=== PATIENT | female | born 1980 | race Caucasian/White ===

== ENCOUNTER 2024-11-01 14:09 | Emergency (ER) | payer MEDICAID, SELFPAY ==
[2024-11-01 14:10] VITALS: BMI 27.3
[2024-11-01 14:25] VITALS: BP 110/71; PULSE 78; RESP 20; TEMP 37.1; O2SAT 96
--- NOTE | 2024-11-01 14:38 | XR_ITS ---
Examination: CT abdomen and pelvis without contrast. Coronal 3-D reconstructions. Sagittal 2-D reconstructions. Date and time of exam:November 01, 2024 1502 hours INDICATIONS: Onset left-sided flank pain today COMPARISON: January 21, 2018 CTDI: vol (mGy): 9.84 DLP: (mGycm): 543 Technique: Axial images of the abdomen have been obtained, 3 mm slice thickness Intravenous contrast material has not been administered. Low dose protocols were performed. One or more of the following dose reduction techniques were used; automated exposure control, adjustment of the mA and/or KV according to patient size, use of iterative reconstruction technique. Findings: No focal liver or splenic lesion Contracted gallbladder No pancreatic or adrenal mass No renal or ureteral calculi No perinephric stranding No hydronephrosis Aorta normal size 15 mm fat-containing umbilical hernia No pericecal inflammatory change No bowel obstruction Anteverted uterus Contracted urinary bladder no bladder mass or bladder calculi Intact osseous structures IMPRESSION: No renal or ureteral calculi, no hydronephrosis No bladder mass or bladder calculi
--- NOTE | 2024-11-01 14:39 | PD.EDRME ---
Rapid Medical Screening Exam [facility] Arrival date/time: 11/01/24 14:09 43-year-old female with no known medical history presents to the emergency room with a chief complaint of fever, left-sided flank pain, left lower abdominal pain x 2 days. I have greeted and performed a focused initial assessment of this patient. A comprehensive ED assessment and evaluation of the patient, analysis of all test results, and completion of the medical decision making process will be conducted by additional ED providers. Chief Complaint: Abdominal Pain Vital signs: Vital Signs Temperature 98.8 F 11/01/24 14:25 Pulse Rate 78 11/01/24 14:25 Respiratory Rate 20 11/01/24 14:25 Blood Pressure 110/71 11/01/24 14:25 Pulse Oximetry (%) 96 11/01/24 14:25 Oxygen Delivery Method Room Air 11/01/24 14:25 Vital signs reviewed by provider: Yes
[2024-11-01 14:58] LABS: Collection Type, Urine Clean Catch
[2024-11-01] MEDS: HYDROcodone/APAP 5/325 TABLET 1 TAB PO (14:58)
[2024-11-01 15:07] LABS: Bilirubin,Urine Negative (Negative); Blood,Urine 1+ (Negative); Clarity,Urine Clear (Clear/Hazy); Color,Urine Colorless (Lt Yel-Yel); Glucose, Urine Negative (Negative); Ketones,Urine Negative (Negative); Leukocyte Esterase,Urine Negative (Negative); Nitrite,Urine Negative (Negative); Protein,Urine Negative (Neg - Trace); RBC,Urine 1 /hpf (0-3); Specific Gravity,Urine 1.009 (1.001-1.035); Squamous Epithelial Cell,Urine 1 /hpf (0-5); Urobilinogen,Urine Negative mg/dL (0.0-1.0); WBC,Urine 1 /hpf (0-5)
[2024-11-01 15:16] LABS: Basophils % (Auto) 0 % (0-2.5); Eosinophils % (Auto) 0 % (0-10); Hematocrit 38.2 % (36.0-46.0); Immature Granulocytes % (Auto) 0 % (0-0); Immature Granulocytes Auto 0.02 Thou/mm3 (0.00-0.00); Lymphocytes # (Auto) 2.1 Thou/mm3 (1.0-4.8); Lymphocytes % (Auto) 23 % (10-50); Mean Corpuscular Hemoglobin 30.8 pg (25.0-35.0); Mean Corpuscular Volume 91 fL (80-100); Monocytes % (Auto) 11 % (0-12); Neutrophils % (Auto) 66 % (37-80); Nucleated Red Blood Cell % 0 /100 WBC (0); Platelet Count 295 Thou/mm3 (140-440); RDW Standard Deviation 40.7 fL (36.4-46.3); Red Blood Count 4.22 Miln/mm3 (4.00-5.20); White Blood Count 9.2 Thou/mm3 (3.6-11.0)
[2024-11-01 15:54] LABS: Alanine Aminotransferase 25 U/L (10-49); Albumin, Serum 4.5 gm/dL (3.5-5.0); Albumin/Globulin Ratio 1.5 (1.2-2.2); Alkaline Phosphatase 96 U/L (46-116); Anion Gap 6 (7-16); Aspartate Amino Transferase 21 U/L (0-34); BUN/Creatinine Ratio 13 Ratio (12-20); Bilirubin,Total 0.6 mg/dL (0.3-1.2); Blood Urea Nitrogen 13 mg/dL (9-23); Calcium 9.5 mg/dL (8.3-10.6); Calcium (Corrected) 9.5 mg/dL (8.5-10.1); Carbon Dioxide 26.3 mMol/L (20.0-31.0); Chloride 104 mMol/L (98-107); Estimated Creatinine Clearance 79.5 mL/min (>60); Glucose 96 mg/dL (74-106); Lipase 36 U/L (12-53); Osmolality,Calculated 272 (275-295); Potassium 3.9 mMol/L (3.4-5.1); Sodium 136 mMol/L (136-145); Total Protein 7.5 gm/dL (5.7-8.2); eGFR > 60 See Note
[2024-11-01 16:48] VITALS: BP 101/65; PULSE 68; RESP 20; TEMP 36.7; O2SAT 98
--- NOTE | 2024-11-01 16:56 | EDNOTE_ITS ---
ED General RME/HPI General Chief complaint: Abdominal Pain Stated complaint: SEVERE L) FLANK/ABD PAIN, SENT BY [facility] FOR US Time Seen by Provider: 11/01/24 16:52 Arrival date/time: 11/01/24 14:09 CC: Left flank pain HPI abrupt onset at 2 AM this morning and has slowly decreased and is now currently minimal at a 1 on a 10 scale no nausea or vomiting. Patient has a history of kidney stones and concerned is the same. The pain initially wrapped around to the groin area. Patient currently denies fever chills chest pain shortness of breath or difficulty breathing. RME / HPI RME / HPI narrative: 11/01/24 14:09 43-year-old female with no known medical history presents to the emergency room with a chief complaint of fever, left-sided flank pain, left lower abdominal pain x 2 days. I have greeted and performed a focused initial assessment of this patient. A comprehensive ED assessment and evaluation of the patient, analysis of all test results, and completion of the medical decision making process will be conducted by additional ED providers. Related Data Previous Rx's ?Medication ?Instructions ?Recorded ibuprofen 800 mg tablet 800 mg PO TID PRN pain #30 t abs 11/25/19 Allergies Allergy/AdvReac Type Severity Reaction Status Date / Time acetaminophen (From NyQuil) Allergy Severe Hives Verified 11/01/24 14:14 dextromethorphan (From Allergy Severe Hives Verified 11/01/24 14:14 NyQuil) doxylamine (From NyQuil) Allergy Severe Hives Verified 11/01/24 14:14 pseudoephedrine (From Allergy Severe Hives Verified 11/01/24 14:14 DayQuil Sinus Pressure/Pain) ibuprofen Allergy Verified 11/01/24 14:14 latex AdvReac Intermediate Rash Verified 11/01/24 14:14 BEE STING Allergy Severe Anaphylaxis Uncoded 11/01/24 14:14 Review of Systems Review of Systems Narrative Review of Systems: GEN: No fever, no chills, no weight loss EYES: No discharge, no visual changes, no pain HEENT: No ear pain, no congestion, no sore throat PULM: No shortness of breath, no cough, no congestion CV: No chest pain, no dyspnea on exertion, no palpitations GI: No nausea, no vomiting, no diarrhea, no pain, no constipation : No frequency, no urgency, no dysuria MUSC/SKEL: No joint pain, no back pain SKIN: No rash PSYCH: No hallucinations, no depression HEME/LYMPH: No easy bleeding or bruising tendencies NEURO: No weakness, no headache Past Medical History Past Medical History NEUROLOGIC: Negative Neurological Disorders (No recent hospitalizations) CARDIAC: Negative Congestive Heart Failure RESPIRATORY: Negative Chronic Obstructive Pulmonary Disease (COPD) GENITOURINARY: Positive Kidney Stones; Negative Renal Disease ENDOCRINE: Negative Diabetes Mellitus Type 1 or Diabetes Mellitus Type 2 Social History SMOKING STATUS: Former smoker SUBSTANCE USE: does not use ED Exam Narrative Physical exam: [General: Completed at 1700. Not in any acute distress Head normocephalic HEENT: Within acceptable limits Neck is supple nontender Chest equal chest rise nontender to palpation Respiratory: Clear to auscultation no wheezes crackles or rubs CV: Rate rhythm is regular no murmurs rubs or clicks Abdomen is distended secondary to body habitus soft nontender no masses positive bowel sounds all 4 quadrants Back: No CVA tenderness no spinous process tenderness from cervical spine thoracic and lumbar spine Skin: Intact no petechiae rash induration ulceration or crepitus Extremities: Moving all extremity against resistance cap refill less than 2 seconds neurosensory intact Neuro: Awake alert oriented x3 Glascow coma 15 no focal deficits] Course Quality Measures none Orders Category Date Time Status CT abdomen pelvis wo con Stat Exams 11/01/24 14:38 Completed CBC Stat Lab 11/01/24 14:55 Completed CMP [Comprehensive Metabolic Panel] Stat Lab 11/01/24 14:55 Completed Lipase Stat Lab 11/01/24 14:55 Completed UA [Urinalysis] Stat Lab 11/01/24 14:52 Completed Urine Culture Stat Lab 11/01/24 14:52 Received HYDROcodone*/APAP 5/325 [[place] 5/325] Med 11/01/24 14:38 Discontinued 1 tab PO X1 ONE Vital Signs Vital signs: Vital Signs Temperature 98.8 F 11/01/24 14:25 Pulse Rate 78 11/01/24 14:25 Respiratory Rate 20 11/01/24 14:25 Blood Pressure 110/71 11/01/24 14:25 Pulse Oximetry (%) 96 11/01/24 14:25 Oxygen Delivery Method Room Air 11/01/24 14:25 [facility] Patient data External records reviewed:: [facility] previous records Clinical information provided by:: patient Social determinants that could affect healthcare access:: none Patient has the following chronic illnesses:: None How is presenting disease/condition affected by chronic disease/condition?: u neffected by Evaluation data The following diagnostics were reviewed and interpreted by me:: lab results and radiology exam(s) Lab and/or radiology exams considered but not ordered:: CBC shows no acute leukocytosis anemia thrombocytopenia CMP shows no acute electrolyte imbalances renal impairment transaminitis or T. bili elevation Urine is colorless 1+ blood no bacteremia. CT of the abdomen pelvis interpreted by me and read by radiology shows no acute finding including hydroureter urolithiasis. Interpretation Summary: Given the patient's presentation and clinical findings suspect the patient is passed kidney stone. We will give the patient medication for nausea and she is to continue to take Tylenol as she is allergic to ibuprofen. Medications Medications considered but not ordered:: None Medication administrations:: Medication Administration History Discontinued Medications Hydrocodone Bitart/Acetaminophen (Hydrocodone/Apap 5/325 Tablet) 1 tab PO X1 ONE Stop: 11/01/24 14:39 Last Admin: 11/01/24 14:58 Dose: 1 tab Documented By: None Consultations Consultation(s) initiated? (list below): No Diagnosis Differential Diagnosis ED Complaint MDM: Urolithiasis hydroureter hydronephrosis Most likely diagnosis given after review of the tests above:: Flank pain Admission Indicated Admission indicated?: not indicated Explain why admission is indicated or not indicated:: Stable for discharge Admission Request Was there a request for admission?: No Disposition Plan Disposition Plan: Discharge Discharge Attestation Discharge Attestation: The patient and all family members were given an opportunity to ask questions and understood the discharge instructions. Discharge instructions specifically effects, indications for sooner follow up or return to the emergency department, and the expected course of current diagnosis. Patient condition: Stable Medical Decision Making Differential Diagnosis Differential Diagnosis: Urolithiasis hydroureter hydronephrosis Lab Data 11/01/24 14:55 11/01/24 14:55 Labs: Lab Results 11/01/24 11/01/24 Range/Units 14:52 14:55 WBC 9.2 (3.6-11.0) Thou/mm3 RBC 4.22 (4.00-5.20) Miln/mm3 Hgb 13.0 (12.0-16.0) g/dL Hct 38.2 (36.0-46.0) % MCV 91 (80-100) fL MCH 30.8 (25.0-35.0) pg MCHC 34.0 (31.0-37.0) g/dl RDW Std Deviation 40.7 (36.4-46.3) fL Plt Count 295 (140-440) Thou/mm3 Neut % (Auto) 66 (37-80) % Lymph % (Auto) 23 (10-50) % [place] % (Auto) 11 (0-12) % Eos % (Auto) 0 (0-10) % Baso % (Auto) 0 (0-2.5) % Neut # (Auto) 6.0 (1.8-7.7) Thou/mm3 Lymph # (Auto) 2.1 (1.0-4.8) Thou/mm3 [place] # (Auto) 1.0 H (0.0-0.8) Thou/mm3 Eos # (Auto) 0.0 (0.0-0.5) Thou/mm3 Baso # (Auto) 0.0 (0.0-0.2) Thou/mm3 Immature Gran # (Auto) 0.02 H (0.00-0.00) Thou/mm3 Absolute Nucleated RBC 0.00 (0.00-0.00) Thou/mm3 Immature Gran % 0 (0-0) % Nucleated RBC % 0 (0) /100 WBC Sodium 136 (136-145) mMol/L Potassium 3.9 (3.4-5.1) mMol/L Chloride 104 (98-107) mMol/L Carbon Dioxide 26.3 (20.0-31.0) mMol/L Anion Gap 6 L (7-16) BUN 13 (9-23) mg/dL Creatinine 1.0 (0.6-1.3) mg/dL Estim Creat Clear Calc 79.5 (>60) mL/min eGFR > 60 (60 - ) See Note BUN/Creatinine Ratio 13 (12-20) Ratio Glucose 96 (74-106) mg/dL Calculated Osmolality 272 L (275-295) Calcium 9.5 (8.3-10.6) mg/dL Corrected Calcium 9.5 (8.5-10.1) mg/dL Total Bilirubin 0.6 (0.3-1.2) mg/dL AST 21 (0-34) U/L ALT 25 (10-49) U/L Alkaline Phosphatase 96 (46-116) U/L Total Protein 7.5 (5.7-8.2) gm/dL Albumin 4.5 (3.5-5.0) gm/dL Globulin 3.0 (2.3-3.5) gm/dL Albumin/Globulin Ratio 1.5 (1.2-2.2) Lipase 36 (12-53) U/L Ur Collection Type Clean Catch Urine Color Colorless A (Lt Yel-Yel) Urine Clarity Clear (Clear/Hazy) Urine pH 6.0 (5.0-7.0) Ur Specific [place] 1.009 (1.001-1.035) Urine Protein Negative (Neg - Trace) Urine Glucose (UA) Negative (Negative) Urine Ketones Negative (Negative) Urine Blood 1+ A (Negative) Urine Nitrite Negative (Negative) Urine Bilirubin Negative (Negative) Urine Urobilinogen (Auto) Negative (0.0-1.0) mg/dL Ur Leukocyte Esterase Negative (Negative) Urine RBC 1 (0-3) /hpf Urine WBC 1 (0-5) /hpf Ur Squamous Epith Cells 1 (0-5) /hpf Urine Bacteria None (None) Discharge Plan Plan Patient Disposition: HOME (Self Care) Patient condition on transfer: Stable Prescriptions/Referrals Prescriptions/Med Rec: No Action ibuprofen 800 mg tablet 800 mg PO TID PRN (Reason: pain) Qty: 30 0RF Referrals: Lalo Quintanilla MD [Physician] - In 1 week No Primary/Family,Physician [Primary Care Provider] - In 1 week Problem List Clinical Impression: Flank pain Patient/Caregiver Discharge Instructions Education Materials: Abdominal Pain Additional Instructions: Given your clinical presentation and complaints, I suspect you have passed a kidney stone please follow-up with your primary care provider if there is worsening of symptoms return the emergency room medially for further evaluation. Print Language: [place] Stand Alone Forms: Melita Award Info., Work/School Release, Patient Portal Info Letter PA/TANNER Supervising Physician PA/TANNER Supervising Physician: Trena Marion ENP
== END 2024-11-01 17:06 | disposition home or self-care (01) ==
PROVIDERS: Nurse Practitioner Family; Emergency Provider Emergency Medicine
DX: R10.32 Left lower quadrant pain (principal); Z87.442 Personal history of urinary calculi
CPT/HCPCS: 36415; 74176; 80053; 81001; 83690; 85025; 87086; 99284; A9270

== ENCOUNTER 2024-11-27 16:17 | Emergency (ER) | payer MEDICAID, SELFPAY ==
[2024-11-27 16:37] VITALS: BP 124/81; PULSE 61; RESP 18; TEMP 36.9; O2SAT 100
--- NOTE | 2024-11-27 16:50 | PD.EDFALL ---
ED Fall Injury RME/HPI General Chief Complaint: Fall Stated Complaint: FELL, HIT R) SIDE OF HEAD, NO BLOOD THINNERS Time Seen by Provider: 11/27/24 16:43 Source: patient Arrival date/time: 11/27/24 16:17 Limitations: no limitations RME / HPI RME / HPI Narrative: 43-year-old female presents to the ED with a chief plaint right Petar Dempsey pain as well as a headache status post falling while rollerskating yesterday. Patient tells me she had a episode of LOC times a few seconds. MD complaint: fall Onset (ago): day(s) (last night.) Fall from: standing Fall witnessed: yes, by family Loss of consciousness: yes (X a few seconds) Length of LOC: second(s) Prolonged down time: no Symptoms prior to fall: none Context: tripped/slipped (Roller skating) Location of injury: head and face Severity: moderate Severity scale (1-10): 4 Quality: aching Associated symptoms (after fall): headache and other (Facial pain) Related Data Previous Rx's ?Medication ?Instructions ?Recorded ibuprofen 800 mg tablet 800 mg PO TID PRN pain #30 tabs 11/25/19 Allergies Allergy/AdvReac Type Severity Reaction Status Date / Time acetaminophen (From NyQuil) Allergy Severe Hives Verified 11/27/24 16:20 dextromethorphan (From Allergy Severe Hives Verified 11/27/24 16:20 NyQuil) doxylamine (From NyQuil) Allergy Severe Hives Verified 11/27/24 16:20 pseudoephedrine (From Allergy Severe Hives Verified 11/27/24 16:20 DayQuil Sinus Pressure/Pain) ibuprofen Allergy Verified 11/27/24 16:20 latex AdvReac Intermediate Rash Verified 11/27/24 16:20 BEE STING Allergy Severe Anaphylaxis Uncoded 11/27/24 16:20 Review of Systems Review of Systems Systems Reviewed: All systems reviewed, normal except as documented Past Medical History Past Medical History NEUROLOGIC: Negative Neurological Disorders (No recent hospitalizations) CARDIAC: Negative Congestive Heart Failure RESPIRATORY: Negative Chronic Obstructive Pulmonary Disease (COPD) GENITOURINARY: Positive Kidney Stones; Negative Renal Disease ENDOCRINE: Negative Diabetes Mellitus Type 1 or Diabetes Mellitus Type 2 Social History SMOKING STATUS: Former smoker SUBSTANCE USE: does not use ED Exam General Limitations: Present no limitations General appearance: Present alert and in no apparent distress Head Head exam: Present atraumatic, normocephalic and normal inspection Eye Eye exam: Present normal appearance, PERRL and EOMI ENT ENT exam: Present other (Tenderness to palpation is the right mandible) Neck Neck exam: Present normal inspection and full ROM Chest Chest inspection: Present normal inspection External exam: Present normal external exam Back Exam Back exam: Present normal inspection and full ROM Neurological Exam Neurological exam: Present alert and oriented X3 Psychiatric Psychiatric exam: Present normal affect and normal mood Skin Skin exam: Present warm and dry Course Quality Measures none Orders Category Date Time Status CT head/brain wo con Stat Exams 11/27/24 16:56 Completed XR mandible <4V Stat Exams 11/27/24 16:56 Completed Morphine Inj Med 11/27/24 17:56 Discontinued 5 mg IM X1 ONE Vital Signs Vital signs: Vital Signs Temperature 98.5 F 11/27/24 16:37 Pulse Rate 61 11/27/24 16:37 Respiratory Rate 18 11/27/24 16:37 Blood Pressure 124/81 11/27/24 16:37 Pulse Oximetry (%) 100 11/27/24 16:37 Oxygen Delivery Method Room Air 11/27/24 16:37 Also May but 100% Fall Patient data External records reviewed:: None Clinical information provided by:: patient Social determinants that could affect healthcare access:: none (NA) Patient has the following chronic illnesses:: NA How is presenting disease/condition affected by chronic disease/condition?: caused by (FALL) Evaluation data The following diagnostics were reviewed and interpreted by me:: radiology exam(s) Lab and/or radiology exams considered but not ordered:: NEGATIVE CT HEAD, NEGATIVE X-RAY MANDIBLE Interpretation Summary: NA Medications / Prescriptions Medications or Prescriptions considered but not ordered:: NA Medication administrations:: Medication Administration History Discontinued Medications Morphine Sulfate (Morphine Sulf Inj 10 Mg/Ml Vial) 5 mg IM X1 ONE Stop: 11/27/24 17:57 Last Admin: 11/27/24 18:52 Dose: 5 mg Documented By: KF Consultations Consultation(s) initiated? (list below): No Diagnosis Fall Differential Diagnosis: syncope, concussion with loss of consciousness, concussion without loss of consciousness and other (CONTUSION FACE, CONTUSION MANDIBLE) Most likely diagnosis given after review of the tests above:: CONTUSION HEAD, CONTUSION MANDIBLE Admission Indicated Admission indicated?: not indicated Admission Request Was there a request for admission?: No Disposition Plan Disposition Plan: Discharge Discharge Attestation Discharge Attestation: The patient and all family members were given an opportunity to ask questions and understood the discharge instructions. Discharge instructions specifically effects, indications for sooner follow up or return to the emergency department, and the expected course of current diagnosis. Patient condition: Stable Discharge Plan Plan Patient Disposition: HOME (Self Care) Disposition Comment: Discharge to home no apparent distress Patient condition on transfer: Stable Prescriptions/Referrals Prescriptions/Med Rec: No Action ibuprofen 800 mg tablet 800 mg PO TID PRN (Reason: pain) Qty: 30 0RF Referrals: No Primary/Family,Physician [Referring Provider] - In 1 week Problem List Clinical Impression: Contusion of head, Contusion of face Impression comment: Discharged in no apparent distress. Patient/Caregiver Discharge Instructions Print Language: Greek Stand Alone Forms: Melita Award Info., Patient Portal Info Letter PA/PLUMBER APPRENTICE Supervising Physician PA/PLUMBER APPRENTICE Supervising Physician: EMERALD
--- NOTE | 2024-11-27 16:56 | XR_ITS ---
Examination: Mandible series. TECHNIQUE: Lesley sagittal oblique series 4 views CLINICAL DATA: November 27, 2024 1822 hours INDICATIONS: Patient fell today with injury to the jaw, mandible pain FINDINGS: No acute mandible fracture Maxilla and orbital rims appear intact as well as cranial vault IMPRESSION: No fracture noted If symptoms persist, consider CT maxillofacial study without contrast followup
--- NOTE | 2024-11-27 16:56 | XR_ITS ---
Examination: CT brain head without contrast. 2-D sagittal coronal reconstructions Date and time of exam:November 27, 2024 1708 hours INDICATIONS: Patient fell today with injury to the right side of the head, right-sided head pain CTDI: vol (mGy):46.1 DLP: (mGycm):855 Technique: Multiple CT axial sections of the brain have been obtained, 5 mm slice thickness. Contrast has not been administered. 2-D sagittal, coronal reconstructions have been obtained Low dose protocols were performed. One or more of the following dose reduction techniques were used; automated exposure control, adjustment of the mA and/or KV according to patient size, use of iterative reconstruction technique. Findings: No significant ventricular enlargement. Intra-axial or extra-axial hemorrhage density is not seen. No mass effect or midline shift Basal cisterns are not remarkable. Fourth ventricle is midline. Cranial vault intact. Impression: Negative for acute hemorrhage, mass effect or midline shift
[2024-11-27] MEDS: MORPHINE SULF INJ 10 MG/ML VIAL 5 MG IM (18:52)
== END 2024-11-27 19:08 | disposition home or self-care (01) ==
PROVIDERS: Emergency Provider Emergency Medicine; PCP Family Medicine
DX: S00.83XA Contusion of other part of head, initial encounter (principal); W19.XXXA Unspecified fall, initial encounter; Y93.51 Activity, roller skating (inline) and skateboarding
CPT/HCPCS: 70100; 70450; 96372; 99284; J2270

== ENCOUNTER 2025-02-11 17:40 | Inpatient (IN) | payer MEDICAID, SELFPAY ==
[2025-02-11 18:15] VITALS: BP 106/70; PULSE 70; RESP 18; TEMP 36.9; O2SAT 98; BMI 26.0
--- NOTE | 2025-02-11 18:16 | PD.EDRME ---
Rapid Medical Screening Exam RME Arrival date/time: 02/11/25 17:40 Chief Complaint: Headache Time Seen by Provider: 02/11/25 18:15 Vital signs: Vital Signs Temperature 98.5 F 02/11/25 18:15 Pulse Rate 70 02/11/25 18:15 Respiratory Rate 18 02/11/25 18:15 Blood Pressure 106/70 02/11/25 18:15 Pulse Oximetry (%) 98 02/11/25 18:15 Oxygen Delivery Method Room Air 02/11/25 18:15 Vital signs reviewed by provider: Yes RME Narrative: 44-year-old female presents to the ED with a complaint of a left-sided headache that started yesterday. It waxes and wanes and at its worst is 10/10 and is currently an 8/10. She has had associated nausea and vomiting as well as left-sided facial tingling and left upper extremity tingling. She denies any recent illness with fever, chills, cough. She has had some left ear pain, left eye watering and left-sided throat pain. She denies any cough or difficulty breathing. She has a history of headaches but has not had a headache in a long time and states that this is the worst headache she has had. I have greeted and performed a focused initial assessment of this patient. A comprehensive ED assessment and evaluation of the patient, analysis of all test results, and completion of the medical decision making process will be conducted by additional ED providers.
--- NOTE | 2025-02-11 18:27 | XR_ITS ---
Examination: CT brain head without contrast. 2-D sagittal coronal reconstructions Date and time of exam:February 11, 2025, 1846 hours Comparison November 27, 2024 INDICATIONS: Onset headaches left facial droop today CTDI: vol (mGy):46.2 DLP: (mGycm):867 Technique: Multiple CT axial sections of the brain have been obtained, 5 mm slice thickness. Contrast has not been administered. 2-D sagittal, coronal reconstructions have been obtained Low dose protocols were performed. One or more of the following dose reduction techniques were used; automated exposure control, adjustment of the mA and/or KV according to patient size, use of iterative reconstruction technique. Findings: No significant ventricular enlargement. Intra-axial or extra-axial hemorrhage density is not seen. No mass effect or midline shift Basal cisterns are not remarkable. Fourth ventricle is midline. Cranial vault intact. Prominent left ethmoid and left nasal airway mucosal disease Impression: Negative for acute hemorrhage, mass effect or midline shift As clinically warranted, brain MRI MRA without contrast would best assess for demyelinating disease, acute ischemic change
[2025-02-11] MEDS: HYDROcodone/APAP 7.5/325 TABLET 1 TAB PO (18:41)
--- NOTE | 2025-02-11 19:23 | PD.EDHA ---
ED Headache RME/HPI General Chief Complaint: Headache Stated Complaint: HEADACHE X YESTERDAY WITH LEFT FACIAL PAIN Time Seen by Provider: 02/11/25 18:15 Arrival date/time: 02/11/25 17:40 RME / HPI RME / HPI Narrative: 44-year-old female presents to the ED with a complaint of a left-sided headache that started yesterday. It waxes and wanes and at its worst is 10/10 and is currently an 8/10. She has had associated nausea and vomiting as well as left-sided facial tingling and left upper extremity tingling. She denies any recent illness with fever, chills, cough. She has had some left ear pain, left eye watering and left-sided throat pain. She denies any cough or difficulty breathing. She has a history of headaches but has not had a headache in a long time and states that this is the worst headache she has had. Related Data Previous Rx's ?Medication ?Instructions ?Recorded ibuprofen 800 mg tablet 800 mg PO TID PRN pain #30 tabs 11/25/19 Allergies Allergy/AdvReac Type Severity Reaction Status Date / Time acetaminophen (From NyQuil) Allergy Severe Hives Verified 02/11/25 17:44 dextromethorphan (From Allergy Severe Hives Verified 02/11/25 17:44 NyQuil) doxylamine (From NyQuil) Allergy Severe Hives Verified 02/11/25 17:44 pseudoephedrine (From Allergy Severe Hives Verified 02/11/25 17:44 DayQuil Sinus Pressure/Pain) ibuprofen Allergy Verified 02/11/25 17:44 latex AdvReac Intermediate Rash Verified 02/11/25 17:44 BEE STING Allergy Severe Anaphylaxis Uncoded 02/11/25 17:44 Review of Systems Review of Systems Systems Reviewed: All systems reviewed, normal except as documented Past Medical History Past Medical History NEUROLOGIC: Negative Neurological Disorders (No recent hospitalizations) CARDIAC: Negative Congestive Heart Failure RESPIRATORY: Negative Chronic Obstructive Pulmonary Disease (COPD) GENITOURINARY: Positive Kidney Stones; Negative Renal Disease ENDOCRINE: Negative Diabetes Mellitus Type 1 or Diabetes Mellitus Type 2 Social History SMOKING STATUS: Never smoker SUBSTANCE USE: does not use ED Exam Narrative Physical exam: Alert and oriented, 44-year-old female, moderate acute pain distress. Pupils are PERRL, EOMs intact. Mild left facial droop noted to the left side of mouth only, otherwise normal motor noted to the face. Mild left-sided sensory deficit noted to the forehead, cheek, mandible. Neck is supple, normal range of motion. No adenopathy noted. TMs and pharynx are without erythema. Left eye tearing. Nares are pale and boggy, left nares with clear drainage. Lungs are clear, regular rate and rhythm. Equal sand shoveler strength, equal pedal push/pull pull. Distal and proximal upper and lower extremity strength is equal and normal. Course Course Course Narrative: Patient was given [place] [address] brain without contrast reveals: Negative for acute hemorrhage, mass effect or midline shift. Patient's pain is only minimally improved. Diphenhydramine 25 mg p.o. and Compazine 10 mg p.o. ordered. Discussed case with Dr. Mcbride. Recommends CT Angio Carotids and Brain. IV Insert and Sodium Chloride Bolus 1 L ordered. Morphine 4mg and Zofran 4mg IV ordered. Quality Measures none Orders Category Date Time Status CT Screening NOW Care 02/11/25 20:38 Active Insert IV NOW Care 02/11/25 20:[address] angio carotid w head w Stat Exams 02/11/25 20:[address] head/brain wo con Stat Exams 02/11/25 18:27 Completed DiphenhydrAMINE [Benadryl] Med 02/11/25 19:29 Discontinued 25 mg PO X1 ONE HYDROcodone*/APAP 7.5/325 [[place] 7.5/325] Med 02/11/25 18:28 Discontinued 1 tab PO X1 ONE Morphine Inj Med 02/11/25 20:38 Once 4 mg IVP X1 ONE Ondansetron Inj [Zofran Inj] Med 02/11/25 20:38 Once 4 mg IVP X1 ONE Prochlorperazine Maleate [Compazine] Med 02/11/25 19:29 Discontinued 10 mg PO X1 ONE Vital Signs Vital signs: Vital Signs Temperature 98.5 F 02/11/25 18:15 Pulse Rate 70 02/11/25 18:15 Respiratory Rate 18 02/11/25 18:15 Blood Pressure 106/70 02/11/25 18:15 Pulse Oximetry (%) 98 02/11/25 18:15 Oxygen Delivery Method Room Air 02/11/25 18:15 Headache MDM Narrative MDM Narrative:: 44-year-old female presents to the ED with a complaint of a left-sided headache that started yesterday. It waxes and wanes and at its worst is 10/10 and is currently an 8/10. She has had associated nausea and vomiting as well as left-sided facial tingling and left upper extremity tingling. She denies any recent illness with fever, chills, cough. She has had some left ear pain, left eye watering and left-sided throat pain. She denies any cough or difficulty breathing. She has a history of headaches but has not had a headache in a long time and states that this is the worst headache she has had. Alert and oriented, 44-year-old female, moderate acute pain distress. Pupils are PERRL, EOMs intact. Mild left facial droop noted to the left of mouth only, otherwise normal motor noted to the face. Mild left-sided sensory deficit noted to the forehead, cheek, mandible. Neck is supple, normal range of motion. No adenopathy noted. TMs and pharynx are without erythema. Left eye tearing. Nares are pale and boggy, left nares with clear drainage. Lungs are clear, regular rate and rhythm. Equal sand shoveler strength, equal pedal push/pull pull. Distal and proximal upper and lower extremity strength is equal and normal. Patient was given [place] 7.[address] brain without contrast reveals: Negative for acute hemorrhage, mass effect or midline shift. Patient's pain is only minimally improved. Diphenhydramine 25 mg p.o. and Compazine 10 mg p.o. ordered. Patient data External records reviewed:: None Clinical information provided by:: patient Social determinants that could affect healthcare access:: none Patient has the following chronic illnesses:: N/A How is presenting disease/condition affected by chronic disease/condition?: no chronic disease Evaluation data The following diagnostics were reviewed and interpreted by me:: radiology exam(s) Lab and/or radiology exams considered but not ordered:: N/A Interpretation Summary: CT Brain wo Contrast Findings: No significant ventricular enlargement. Intra-axial or extra-axial hemorrhage density is not seen. No mass effect or midline shift Basal cisterns are not remarkable. Fourth ventricle is midline. Cranial vault intact. Prominent left ethmoid and left nasal airway mucosal disease Impression: Negative for acute hemorrhage, mass effect or midline shift Medications / Prescriptions Medications or Prescriptions considered but not ordered:: N/A Medication administrations:: Medication Administration History Discontinued Medications Hydrocodone Bitart/Acetaminophen (Hydrocodone/Apap 7.5/325 Tablet) 1 tab PO X1 ONE Stop: 02/11/25 18:29 Last Admin: 02/11/25 18:41 Dose: 1 tab Documented By: Diphenhydramine HCl (Diphenhydramine 25 Mg Capsule) 25 mg PO X1 ONE Stop: 02/11/25 19:30 Last Admin: 02/11/25 19:51 Dose: 25 mg Documented By: Prochlorperazine Maleate (Prochlorperazine Maleate 5 Mg Tablet) 10 mg PO X1 ONE Stop: 02/11/25 19:30 Last Admin: 02/11/25 19:51 Dose: 10 mg Documented By: Hydrocodone 7.5 mg p.o., Benadryl 25 mg p.o., and Compazine 10 mg p.o. Diagnosis Differential diagnosis headache: migraine, tension headache, subarachnoid hemorrhage, headache and sinusitis Admission Request Was there a request for admission?: No Disposition Plan Disposition Plan: Discharge Discharge Attestation Discharge Attestation: The patient and all family members were given an opportunity to ask questions and understood the discharge instructions. Discharge instructions specifically effects, indications for sooner follow up or return to the emergency department, and the expected course of current diagnosis. Patient condition: Stable Discharge Plan Plan Patient Disposition: HOME (Self Care) Discharge Disposition comment: Stable and improved Prescriptions/Referrals Prescriptions/Med Rec: No Action ibuprofen 800 mg tablet 800 mg PO TID PRN (Reason: pain) Qty: 30 0RF Referrals: Lalo Quintanilla MD [Primary Care Provider] - In 1 week Patient/Caregiver Discharge Instructions Print Language: Qatari Stand Alone Forms: Melita Award Info., Patient Portal Info Letter
[2025-02-11] MEDS: PROCHLORPERAZINE MALEATE 5 MG TABLET 10 MG PO (19:51)
[2025-02-11 20:50] VITALS: BP 124/66; PULSE 60; RESP 18; TEMP 36.9; O2SAT 98
--- NOTE | 2025-02-11 20:58 | XR_ITS ---
Examination: CTA carotids with intravenous contrast CTA brain, head with intravenous contrast. 2-D sagittal, coronal reconstructions. 3-D reconstructions. Exam date and time: February 11, 2025 2113 hours INDICATIONS: Onset left facial droop left facial numbness beginning 3:30 PM today CTDI: vol (mGy) 18.8 DLP: (mGycm) 500 Technique: Multiple CTA axial brain, head carotid images post intravenous contrast injection 100 cc, [id number]. 2-D sagittal, coronal reconstructions. 3-D reconstructions, 3-D post processing including vascular maximum intensity projection images. Low dose protocols were performed. One or more of the following dose reduction techniques were used; automated exposure control, adjustment of the mA and/or KV according to patient size, use of iterative reconstruction technique. Findings: No common carotid carotid bifurcation or internal carotid artery stenoses Dominant left vertebral artery with no critical stenoses No cerebral large vessel occlusions, thrombus, dissection or cerebral aneurysm IMPRESSION: No significant neck arterial stenoses No cerebral abscess or arterial occlusions
--- NOTE | 2025-02-11 20:58 | EKG_ITS ---
[facility] Test Date: 2025-02-11 Pat Name: EILEEN COLEMAN Department: Room: - Gender: Female [employer]: : 1980 Requested By: Yasmin Lees Order Number: [id number] Reading MD: Yasmin Lees Measurements Intervals Welches Rate: 53 P: 58 ME: 165 QRS: 33 QRSD: 114 T: 57 QT: 414 QTc: 391 Interpretive Statements SINUS BRADYCARDIA INCOMPLETE RIGHT BUNDLE BRANCH BLOCK [90+ ms QRS DURATION, TERMINAL R IN V1/V2, 40+ ms S IN I/aVL/V4/V5/V6] No previous ECG available for comparison /store/S0/[id number].pdf
[2025-02-11 21:00] VITALS: PULSE 58; RESP 98
--- NOTE | 2025-02-11 21:00 | EDNOTE_ITS ---
<Statement entered by Milagros Mcbride MD - 02/12/25 21:40> As co-signing physician, I was present and available for consult prn. I concur with the plan and care as documented by the midlevel provider. ED Headache RME/HPI General Chief Complaint: Headache Stated Complaint: HEADACHE X YESTERDAY WITH LEFT FACIAL PAIN Time Seen by Provider: 02/11/25 18:15 Arrival date/time: 02/11/25 17:40 RME / HPI RME / HPI Narrative: 44-year-old female patient with no significant past medical history, came in for evaluation regarding headache, onset of symptoms about 8 hours and half ago, associated with left-sided numbness, facial asymmetry, and left-sided upper extremity numbness. Patient denies any slurring of speech. Denies any weakness to the lower extremities. Denies any weakness to the upper extremities also. Denies any other complaints no medications taken prior to ER visit. Patient denies any trauma to the head. Denies any fever. Related Data Previous Rx's ?Medication ?Instructions ?Recorded ibuprofen 800 mg tablet 800 mg PO TID PRN pain #30 t abs 11/25/19 Allergies Allergy/AdvReac Type Severity Reaction Status Date / Time acetaminophen (From NyQuil) Allergy Severe Hives Verified 02/11/25 17:44 dextromethorphan (From Allergy Severe Hives Verified 02/11/25 17:44 NyQuil) doxylamine (From NyQuil) Allergy Severe Hives Verified 02/11/25 17:44 pseudoephedrine (From Allergy Severe Hives Verified 02/11/25 17:44 DayQuil Sinus Pressure/Pain) ibuprofen Allergy Verified 02/11/25 17:44 latex AdvReac Intermediate Rash Verified 02/11/25 17:44 BEE STING Allergy Severe Anaphylaxis Uncoded 02/11/25 17:44 Review of Systems Review of Systems Narrative Review of Systems: Review of system reviewed and within normal limits except mentioned in HPI ED Exam Narrative Physical exam: VITAL SIGNS: Reviewed. GENERAL APPEARANCE: Alert and interactive, follows commands, no acute distress, HEAD AND FACE: Facial symmetry noted to the left side with numbness to the left side of the face ENT: PERRL, pink conjunctivitis, eyelid no trauma, Mucous membrane moist. NECK: Supple, nontender, no nuchal rigidity. CHEST: No tenderness, no crepitus, no paradoxical movement, no retractions. LUNGS: Clear, well ventilated, symmetric, no rales, no wheezing, no ronchi, no stridor, good breath sounds bilaterally. HEART: Regular rate, regular rhythm, no murmur, no gallops. ABDOMEN: Soft, positive bowel sounds, nondistended, no guarding, nontender, no rebound, no masses, RECTAL: Deferred. GENITAL: Deferred. NEUROLOGICAL: Gross motor function intact sensory function intact, Appropriate for age. MUSCULOSKELETAL: low back nontender, full range of motion. EXTREMITIES: Nontender, full range of motion. SKIN: Color pink, dry, no rash, no lacerations, no abrasions, no contusions. LYMPHATICS: Deferred. Course Course Course Narrative: Patient was given [place] [address] brain without contrast reveals: Negative for acute hemorrhage, mass effect or midline shift. Patient's pain is only minimally improved. Diphenhydramine 25 mg p.o. and Compazine 10 mg p.o. ordered. Discussed case with Dr. Mcbride. Recommends CT Angio Carotids and Brain. IV Insert and Sodium Chloride Bolus 1 L ordered. Morphine 4mg and Zofran 4mg IV ordered. Quality Measures none Orders Category Date Time Status Bedside Blood Glucose NOW Care 02/11/25 20:58 Active COVID-19 Screening Questionnaire NOW Care 02/11/25 22:[address] Screening NOW Care 02/11/25 20:38 Active Cork Insulator Helper NOW Care 02/11/25 20:58 Active Continuous Pulse Oximetry NOW Care 02/11/25 20:58 Completed Decision to Admit X1 Care 02/11/25 22:20 Active EKG (ED ONLY) *Do not use* NOW Care 02/11/25 20:58 Completed In and Out Catheter NEEDED Care 02/11/25 20:58 Active Insert IV NOW Care 02/11/25 20:38 Active Insert IV NOW Care 02/11/25 20:58 Active NIH Stroke Scale now Care 02/11/25 20:58 Active NPO NOW Care 02/11/25 20:58 Active Nurse Swallow Screen x1 Care 02/11/25 20:58 Active Consult to Neurology / Tele-Neurology Routine Cons 02/11/25 20:[address] angio stroke protocol Stat Exams 02/11/25 20:[address] head/brain wo con Stat Exams 02/11/25 18:27 Completed EKG (ED Only) Stat Exams 02/11/25 20:58 Draft CBC Stat Lab 02/11/25 21:09 Completed Comprehensive Metabolic Panel Stat Lab 02/11/25 21:09 Results Drug Screen,Urine Stat Lab 02/11/25 21:40 Received HCG Titer if Positive Stat Lab 02/11/25 21:09 Results Magnesium Stat Lab 02/11/25 21:09 Results Partial Thromboplastin Time Stat Lab 02/11/25 21:09 Completed Prothrombin Time with INR Stat Lab 02/11/25 21:09 Completed Troponin I Stat Lab 02/11/25 21:09 Results Urinalysis Stat Lab 02/11/25 21:40 Received Urine Culture Stat Lab 02/11/25 21:40 Received Aspirin Med 02/11/25 21:38 Discontinued 325 mg PO X1 ONE DiphenhydrAMINE [Benadryl] Med 02/11/25 19:29 Discontinued 25 mg PO X1 ONE HYDROcodone*/APAP 7.5/325 [[place] 7.5/325] Med 02/11/25 18:28 Discontinued 1 tab PO X1 ONE Morphine Inj Med 02/11/25 20:38 Discontinued 4 mg IVP X1 ONE Ondansetron Inj [Zofran Inj] Med 02/11/25 20:58 Active 4 mg IVP Q4HR PRN Ondansetron Inj [Zofran Inj] Med 02/11/25 20:38 Discontinued 4 mg IVP X1 ONE Prochlorperazine Maleate [Compazine] Med 02/11/25 19:29 Discontinued 10 mg PO X1 ONE Sodium Chloride 0.9% 1000 ml [Ns] 1,000 ml Med 02/11/25 20:43 Discontinued IV 999 mls/hr Oxygen Delivery NOW RT 02/11/25 20:58 Active Vital Signs Vital signs: Vital Signs Temperature 98.5 F 02/11/25 18:15 Pulse Rate 70 02/11/25 18:15 Respiratory Rate 18 02/11/25 18:15 Blood Pressure 106/70 02/11/25 18:15 Pulse Oximetry (%) 98 02/11/25 18:15 Oxygen Delivery Method Room Air 02/11/25 18:15 Headache MDM Narrative MDM Narrative:: Patient was initially seen in [facility] by another provider. 44-year-old female patient with no significant past medical history, came in for evaluation regarding headache, onset of symptoms about 8 hours and half ago, associated with left-sided numbness, facial asymmetry, and left-sided upper extremity numbness. Patient denies any slurring of speech. Denies any weakness to the lower extremities. Denies any weakness to the upper extremities also. Denies any other complaints no medications taken prior to ER visit. Patient denies any trauma to the head. Denies any fever. Stroke alert was initiated right away on my initial evaluation. CT scan of the head and CT angiogram head and neck all came back unremarkable patient's workup also came back unremarkable. Spoke with teleneurologist who recommend full dose of aspirin, and admit the patient for stroke workup. Plan of care discussed with the patient and family who agrees to be admitted for Patient data External records reviewed:: None Clinical information provided by:: patient and family Social determinants that could affect healthcare access:: none Patient has the following chronic illnesses:: None How is presenting disease/condition affected by chronic disease/condition?: uneffected by Evaluation data The following diagnostics were reviewed and interpreted by me:: lab results, radiology exam(s) and EKG tracing(s) Lab and/or radiology exams considered but not ordered:: None Interpretation Summary: See results MDM Medications / Prescriptions Medications or Prescriptions considered but not ordered:: Stable Medication administrations:: Medication Administration History Ondansetron HCl (Ondansetron Inj 2 Mg/Ml Inj 2 Ml) 4 mg IVP Q4HR PRN PRN Reason: NAUSEA OR VOMITING Stop: 03/13/25 20:57 Discontinued Medications Hydrocodone Bitart/Acetaminophen (Hydrocodone/Apap 7.5/325 Tablet) 1 tab PO X1 ONE Stop: 02/11/25 18:29 Last Admin: 02/11/25 18:41 Dose: 1 tab Documented By: Aspirin (Aspirin 325 Mg Tablet) 325 mg PO X1 ONE Stop: 02/11/25 21:39 Last Admin: 02/11/25 21:55 Dose: 325 mg Documented By: CCT Diphenhydramine HCl (Diphenhydramine 25 Mg Capsule) 25 mg PO X1 ONE Stop: 02/11/25 19:30 Last Admin: 02/11/25 19:51 Dose: 25 mg Documented By: Sodium Chloride (Ns) 1,000 mls @ 999 mls/hr IV .Q1H1M ONE Stop: 02/11/25 21:43 Last Admin: 02/11/25 21:40 Dose: 999 mls/hr Documented By: CCT Morphine Sulfate (Morphine Sulf Inj 10 Mg/Ml Vial) 4 mg IVP X1 ONE Stop: 02/11/25 20:39 Last Admin: 02/11/25 21:40 Dose: 4 mg Documented By: CCT Ondansetron HCl (Ondansetron Inj 2 Mg/Ml Inj 2 Ml) 4 mg IVP X1 ONE; Protocol Stop: 02/11/25 20:39 Last Admin: 02/11/25 21:39 Dose: 4 mg Documented By: CCT Prochlorperazine Maleate (Prochlorperazine Maleate 5 Mg Tablet) 10 mg PO X1 ONE Stop: 02/11/25 19:30 Last Admin: 02/11/25 19:51 Dose: 10 mg Documented By: Aspirin, [place], Benadryl, IV fluids, morphine Zofran Consultations Consultation(s) initiated? (list below): Yes Consultation #1 (Physician, Specialty, Details): Teleneurologist, thank you Diagnosis Differential diagnosis headache: migraine and other (Strokelike symptoms) Most likely diagnosis given after review of the tests above:: Strokelike symptoms Admission Indicated Admission indicated?: indicated Explain why admission is indicated or not indicated:: For stroke workup Admission Request Was there a request for admission?: Yes Admission Attestation Admission request attestation: Discussed case with Hospitalist service regarding admission. Discussed patients ED course, exam findings, labs, and radiology results. The Hospitalist [agrees, to accept the patient for admission. Disposition Plan Disposition Plan: Admit Discharge Plan Plan Patient Disposition: Admit Acute Care w/in Hospital Prescriptions/Referrals Prescriptions/Med Rec: No Action ibuprofen 800 mg tablet 800 mg PO TID PRN (Reason: pain) Qty: 30 0RF Referrals: Lalo Quintanilla MD [Primary Care Provider] - In 1 week Problem List Clinical Impression: Stroke-like symptom Patient/Caregiver Discharge Instructions Print Language: Mongolian Stand Alone Forms: Melita Award Info., Patient Portal Info Letter
[2025-02-11 21:19] LABS: Basophils # (Auto) 0.0 Thou/mm3 (0.0-0.2); Basophils % (Auto) 0 % (0-2.5); Eosinophils # (Auto) 0.2 Thou/mm3 (0.0-0.5); Eosinophils % (Auto) 3 % (0-10); Hematocrit 37.1 % (36.0-46.0); Hemoglobin 12.8 g/dL (12.0-16.0); Immature Granulocytes Auto 0.02 Thou/mm3 (0.00-0.00); Lymphocytes # (Auto) 1.9 Thou/mm3 (1.0-4.8); Lymphocytes % (Auto) 26 % (10-50); Mean Corpuscular HGB Conc 34.5 g/dl (31.0-37.0); Mean Corpuscular Hemoglobin 31.0 pg (25.0-35.0); Mean Corpuscular Volume 90 fL (80-100); Monocytes # (Auto) 1.1 Thou/mm3 (0.0-0.8); Monocytes % (Auto) 15 % (0-12); Neutrophils # (Auto) 4.0 Thou/mm3 (1.8-7.7); Neutrophils % (Auto) 56 % (37-80); Nucleated Red Blood Cell # 0.00 Thou/mm3 (0.00-0.00); Nucleated Red Blood Cell % 0 /100 WBC (0); Platelet Count 272 Thou/mm3 (140-440); RDW Standard Deviation 41.3 fL (36.4-46.3); Red Blood Count 4.13 Miln/mm3 (4.00-5.20); White Blood Count 7.1 Thou/mm3 (3.6-11.0)
[2025-02-11 21:35] LABS: INR 1.0 (0.9-1.3); Partial Thromboplastin Time 27.6 Seconds (22.0-36.0); Prothrombin Time 11.4 Seconds (9.0-12.2)
--- NOTE | 2025-02-11 21:35 | PD.TNEURO ---
Tele Neuro Consultation Consultation Date 02/11/25 Most Recent Vital Signs Last Vital Signs Temp 98.5 F 02/11/25 20:50 Pulse 58 L 02/11/25 21:00 Resp 18 02/11/25 20:50 BP 124/66 02/11/25 20:50 Pulse Ox 98 02/11/25 20:50 O2 Del Method Room Air 02/11/25 20:50 Laboratory-Coagulation Panel PT 11.4 Seconds (9.0-12.2) 02/11/25 21:09 INR 1.0 (0.9-1.3) 02/11/25 21:09 APTT 27.6 Seconds (22.0-36.0) 02/11/25 21:09 Consultation Narrative [facility] TeleNeurology Consult Services Patient Name:???Linda Damian Date of :???1980 Identification Number:??? Date of Service:???02/11/2025 20:59:53 Diagnosis:?R29.810 - Facial numbness/ Facial weakness Impression: ?Patient is a 44 year old woman, presenting for headache since yesterday. She reports 02/11/2025 at 1530 PST starting to experience left facial and left forearm numbness and tingling. Denies significant PMHx. Typically headache get better with Tylenol. Not on blood thinners. ? ?The patient was not a candidate for IV thrombolytics due to LKN > 4.5 hrs. ? ?CT head was performed and reviewed. No acute findings per radiology report, I reviewed images as well. CTA head and neck negative for acute findings, no LVO. ? ?Differential includes stroke vs complex migraine. ? ?Recommend further stroke workup as below. ? ? Our recommendations are outlined below. Recommendations: ? Stroke/Telemetry Floor ? Neuro Checks (Q4) ? Bedside Swallow Eval ? DVT Prophylaxis ? IV Fluids, Normal Saline ? Head of Bed 30 Degrees ? Euglycemia and Avoid Hyperthermia (PRN Acetaminophen) ? Initiate or continue Aspirin 325 MG daily ? Antihypertensives PRN if Blood pressure is greater than 220/120 or there is a concern for End organ damage/contraindications for permissive HTN. If blood pressure is greater than 220/120 give labetalol PO or IV or Vasotec IV with a goal of 15% reduction in BP during the first 24 hours. ?MRI head without contrast Sign Out: ? Discussed with Emergency Department Provider Advanced Imaging:CTA Head and Neck Completed. LVO:No Patient is not a candidate for NANCY Metrics: Last Known Well: 02/11/2025 15:30:00 Dispatch Time: 02/11/2025 20:59:53 Arrival Time: 02/11/2025 17:42:00 Initial Response Time: 02/11/2025 20:59:53Symptoms: numbness/tingling. Initial patient interaction: 02/11/2025 21:19:18 NIHSS Assessment Completed: 02/11/2025 21:27:07Patient is not a candidate for Thrombolytic. Thrombolytic Medical Decision: 02/11/2025 21:34:57Patient was not deemed candidate for Thrombolytic because of following reasons: LKW outside 4.[address] Head: I personally reviewed all the CT images that were available to me and it showed: no acute findings Primary Provider Notified of Diagnostic Impression and Management Plan on: 02/11/2025 21:35:09 History of Present Illness:Patient is a 44 year old Female. Patient was brought by private transportation with symptoms of numbness/tingling. Patient is a 44 year old woman, presenting for headache since yesterday. She reports 02/11/2025 at 1530 PST starting to experience left facial and left forearm numbness and tingling. Denies significant PMHx. Typically headache get better with Tylenol. Not on blood thinners. ? Past Medical History: ?Migraine Headaches ?There is no history of Stroke Medications: No Anticoagulant use? No Antiplatelet use Reviewed EMR for current medications Allergies:? Reviewed Social History: Smoking: Former Drug Use: No Family History: There is no family history of premature cerebrovascular disease pertinent to this consultation ROS : 14 Points Review of Systems was performed and was negative except mentioned in HPI. Past Surgical History: There Is No Surgical History Contributory To Today?s Visit ? Examination: BP(124/66),?Pulse(58),?Blood Glucose(93) 1A: Level of Consciousness - Alert; keenly responsive?+ 0 1B: Ask Month and Age - Both Questions Right?+ 0 1C: Blink Eyes & Squeeze Hands - Performs Both Tasks?+ 0 2: Test Horizontal Extraocular Movements - Normal?+ 0 3: Test Visual Carlos - No Visual Loss?+ 0 4: Test Facial Palsy (Use Grimace if Obtunded) - Minor paralysis (flat nasolabial fold, smile asymmetry)?+ 1 5A: Test Left Arm Motor Drift - No Drift for 10 Seconds?+ 0 5B: Test Right Arm Motor Drift - No Drift for 10 Seconds?+ 0 6A: Test Left Leg Motor Drift - No Drift for 5 Seconds?+ 0 6B: Test Right Leg Motor Drift - No Drift for 5 Seconds?+ 0 7: Test Limb Ataxia (FNF/Heel-Lakhani) - No Ataxia?+ 0 8: Test Sensation - Mild-Moderate Loss: Less Sharp/More Dull?+ 1 9: Test Language/Aphasia - Normal; No aphasia?+ 0 10: Test Dysarthria - Normal?+ 0 11: Test Extinction/Inattention - No abnormality?+ 0 NIHSS Score:?2 NIHSS Free Text :?left facial numbness, mild left lower facial asymmetry Pre-Morbid Modified Cowley Scale:0 Points = No symptoms at all Spoke with :?Dr Yasmin Lees This consult was conducted in real time using interactive audio and video technology. Patient was informed of the technology being used for this visit and agreed to proceed. Patient located in hospital and provider located at home/office setting. Patient is being evaluated for possible acute neurologic impairment and high probability of imminent or life-threatening deterioration. I spent total of 30 minutes providing care to this patient, including time for face to face visit via telemedicine, review of medical records, imaging studies and discussion of findings with providers, the patient and/or family. Dr René Mobley [facility] For Inpatient follow-up with [facility] physician please call [facility] at . As we are not an outpatient service for any post hospital discharge needs please contact the hospital for assistance. If you have any questions for the [facility] physicians or need to reconsult for clinical or diagnostic changes please contact us via [facility] at . ?
[2025-02-11] MEDS: ONDANSETRON INJ 2 MG/ML INJ 2 ML 4 MG IVP (21:39)
[2025-02-11 21:40] LABS: Alanine Aminotransferase 29 U/L (10-49); Albumin, Serum 4.5 gm/dL (3.5-5.0); Albumin/Globulin Ratio 1.6 (1.2-2.2); Alkaline Phosphatase 91 U/L (46-116); Anion Gap 9 (7-16); Aspartate Amino Transferase 31 U/L (0-34); BUN/Creatinine Ratio 11 Ratio (12-20); Bilirubin,Total 0.4 mg/dL (0.3-1.2); Blood Urea Nitrogen 12 mg/dL (9-23); Calcium 9.8 mg/dL (8.3-10.6); Calcium (Corrected) 9.8 mg/dL (8.5-10.1); Carbon Dioxide 26.2 mMol/L (20.0-31.0); Chloride 104 mMol/L (98-107); Creatinine (Component) 1.1 mg/dL (0.6-1.3); Estimated Creatinine Clearance 70.1 mL/min (>60); Globulin 2.9 gm/dL (2.3-3.5); Glucose 99 mg/dL (74-106); Magnesium 2.1 mg/dL (1.6-2.6); Osmolality,Calculated 277 (275-295); Potassium 3.7 mMol/L (3.4-5.1); Sodium 139 mMol/L (136-145); Total Protein 7.4 gm/dL (5.7-8.2); Troponin I < 0.002 ng/mL (0.0-0.045); eGFR > 60 See Note
[2025-02-11] MEDS: MORPHINE SULF INJ 10 MG/ML VIAL 4 MG IVP (21:40)
[2025-02-11] MEDS: SODIUM CHLORIDE 0.9% 1000 ML 1,000 ML 999 ML IV (21:40)
[2025-02-11 22:05] LABS: Collection Type, Urine Clean Catch
[2025-02-11 22:21] LABS: Bilirubin,Urine Negative (Negative); Blood,Urine Trace (Negative); Clarity,Urine Clear (Clear/Hazy); Color,Urine Yellow (Lt Yel-Yel); Glucose, Urine Negative (Negative); Ketones,Urine Negative (Negative); Leukocyte Esterase,Urine Positive (Negative); Nitrite,Urine Negative (Negative); PH,Urine 6.0 (5.0-7.0); Protein,Urine Trace (Neg - Trace); RBC,Urine 17 /hpf (0-3); Squamous Epithelial Cell,Urine 6 /hpf (0-5); Urobilinogen,Urine Negative mg/dL (0.0-1.0); WBC,Urine 12 /hpf (0-5)
[2025-02-11 22:32] LABS: Specific Gravity,Urine 1.020 (1.001-1.035)
[2025-02-11 22:45] LABS: HCG Titer if Positive Negative
--- NOTE | 2025-02-11 22:45 | PC.NURSE ---
Resident Dr. Becerra at bedside
[2025-02-11 23:15] VITALS: BP 118/78; PULSE 45; RESP 18; TEMP 36.9; O2SAT 98
--- NOTE | 2025-02-11 23:23 | PD.RESHP ---
Documentation for date of: 02/11/25 [facility] History of Present Illness History of present illness: Linda Damian is a 44-year-old F with no PMH who presents today with stroke-like symptoms. Patient reports that she began having a headache on night that was accompanied by a worsening in severity and nausea at around 3 AM on Thursday and is now the most severe it has been starting 3:30 AM today (02/11/2025). She says that the pain is localized to the left hemisphere of the head and describes it as a stabbing, throbbing pain and pressure that comes and goes. She also endorses numbness of the left arm, left facial drooping, facial twitching, and chest pain. She denies ever having an episode similar to this one in the past. In the ED, vitals showed: BP 106/70 HR 70 RR 18 Temp 98.5 SpO2 98% on room air ED Course: Labs did not show anything significant. In the ED, patient was given po [place] x1, po Benadryl 25 mg x1, po Compazine 10 mg x1, IV Zofran 4 mg x1, IV morphine 4 mg x1, 1 L NS bolus x1, and po aspirin 325 mg x1. On Imaging: Head CT was negative for acute hemorrhage, mass effect or midline shift. Head/neck CTA was negative for significant neck arterial stenoses or cerebral abscess or arterial occlusions. EKG showed sinus bradycardia with incomplete RBBB (per automatic read, pending human interpretation). Patient was admitted for the work-up and management of stroke-like symptoms and headache. Neurology was consulted and is closely following the case. Review of Systems Review of Systems Narrative Review of Systems: General: Denies fevers or chills HEENT: Endorses left-sided rhinorrhea. Denies congestion or sore throat Heart: Endorses chest pain. Denies palpitations Lungs: Endorses shortness of breath. Denies cough Abdomen: Endorses nausea. Denies abdominal pain, vomiting, constipation, diarrhea, or blood in stool Genitourinary: Denies frequency, urgency, dysuria, or hematuria Neurology: Endorses left-sided blurry vision, facial numbness, facial drooping, facial twitching and UE numbness and weakness. Endorses photophobia. Denies any difficulty in speaking Review of systems otherwise negative except what is mentioned above. Past Medical History Past Medical History NEUROLOGIC: Negative Neurological Disorders (No recent hospitalizations) CARDIAC: Negative Congestive Heart Failure RESPIRATORY: Negative Chronic Obstructive Pulmonary Disease (COPD) GENITOURINARY: Positive Kidney Stones; Negative Renal Disease ENDOCRINE: Negative Diabetes Mellitus Type 1 or Diabetes Mellitus Type 2 Social History SMOKING STATUS: Never smoker SUBSTANCE USE: does not use Past Medical History Comments PMH COMMENT: PMH: none PSH: appendectomy at 14 yo, tubal ligation 12 year ago, uterine cancer (treated 5 years ago) Medications: Tylenol Allergies: ibuprofen (causes shortness of breath), bee stings FH: dad has history of blood clots, neck tumor, congenital hip tumor, testicular cancer, family history of gastric cancer, and scoliosis, mother has history of stroke, T2DM, HTN, DVT, and varicose veins SH: no drinking, smoked from [age] yo, 0.5 packs per day, no recreational drug use, lives with mom, , 3 youngest children of 5, 1 grandchild, and 2 dogs, worked as a caregiver for 14 years Exam Vital Signs Temp Pulse Resp BP Pulse Ox O2 Del Method 98.5 F 45 L 18 118/78 98 Room Air 02/11/25 23:15 02/11/25 23:15 02/11/25 23:15 02/11/25 23:15 02/11/25 23:15 02/11/25 23:15 Narrative Exam Physical Exam: General: Alert, no acute distress. Skin: Warm, dry, intact, no obvious rash. Head: Normocephalic, atraumatic. Eye: Normal conjunctiva, PERRL. Throat: Oral mucosa moist. Cardiovascular: Bradycardic. No murmur, normal peripheral perfusion, no edema. Respiratory: Shallow breaths. No crackles, no wheezing. Gastrointestinal: Soft, nontender, non-distended. Psychiatric: Cooperative, appropriate affect. Neuro: Mental status: Alert, oriented, appropriately responding to commands. Speech/Language: Speech fluent, no word finding difficulty or paraphasic errors observed. Language-comprehension, repetition and naming intact. No dysarthria noted. Memory: Grossly recent and remote intact. Cranial Nerves: II: Blurry vision in left eye. III, IV, : Mild ptosis of left eye. EOMI, no nystagmus. V: Asymmetric sensation in V1, V2 and V3 distribution to crude touch (reduced sensation of left side). Jaw strength normal. VII: No facial asymmetry, able to smile symmetrically and BL good eye closure. VIII: Hearing intact in both ears per finger rubbing. IX, X: Symmetrical palate elevation, uvula in midline. XI: Symmetrical head rotation and shoulder shrug. IX, XII: Midline tongue protrusion. No fasciculations or atrophy noted. Sensory examination Asymmetric sensation of upper extremity (reduced sensation of left side). Bilateral lower extremity grossly intact. Motor examination 5/5 strength of right upper extremity and 4/5 strength of left upper extremity. 5/5 strength in bilateral lower extremity Results: Labs 02/11/25 21:09 02/11/25 21:09 Labs: Short CBC 02/11/25 Range/Units 21:09 WBC 7.1 (3.6-11.0) Thou/mm3 Hgb 12.8 (12.0-16.0) g/dL Hct 37.1 (36.0-46.0) % Plt Count 272 (140-440) Thou/mm3 BMP 02/11/25 21:09 Sodium 139 Potassium 3.7 Chloride 104 Carbon Dioxide 26.2 BUN 12 Creatinine 1.1 Glucose 99 Calcium 9.8 Cardiac Enzymes 02/11/25 Range/Units 21:09 Troponin I < 0.002 (0.0-0.045) ng/mL Liver Function 02/11/25 Range/Units 21:09 Total Bilirubin 0.4 (0.3-1.2) mg/dL AST 31 (0-34) U/L ALT 29 (10-49) U/L Alkaline Phosphatase 91 (46-116) U/L Albumin 4.5 (3.5-5.0) gm/dL Urine 02/11/25 Range/Units 21:40 Urine Color Yellow (Lt Yel-Yel) Urine Clarity Clear (Clear/Hazy) Urine pH 6.0 (5.0-7.0) Ur Specific Clifford 1.020 (1.001-1.035) Urine Protein Trace (Neg - Trace) Urine Glucose (UA) Negative (Negative) Quality Measures Quality Measures none Medications Home Medications and Allergies Home Medications ?Medication ?Instructions ?Recorded ?Confirmed ?Type No Known Home Medications 02/12/25 02/12/25 History Allergies Allergy/AdvReac Type Severity Reaction Status Date / Time acetaminophen (From NyQuil) Allergy Severe Hives Verified 02/11/25 17:44 dextromethorphan (From Allergy Severe Hives Verified 02/11/25 17:44 NyQuil) doxylamine (From NyQuil) Allergy Severe Hives Verified 02/11/25 17:44 pseudoephedrine (From Allergy Severe Hives Verified 02/11/25 17:44 DayQuil Sinus Pressure/Pain) blueberry Allergy Verified 02/12/25 00:28 ibuprofen Allergy Verified 02/11/25 17:44 latex AdvReac Intermediate Rash Verified 02/11/25 17:44 BEE STING Allergy Severe Anaphylaxis Uncoded 02/11/25 17:44 Visit Medications Acetaminophen (Acetaminophen 325 Mg Tablet) 650 mg PO Q6H PRN PRN Reason: PAIN SCALE 1-3 (mild Stop: 03/13/25 23:03 Ondansetron HCl (Ondansetron Inj 2 Mg/Ml Inj 2 Ml) 4 mg IVP Q4HR PRN PRN Reason: NAUSEA OR VOMITING Stop: 03/13/25 20:57 Sennosides (Senna Tablet) 1 tab PO QDAY PRN; Protocol PRN Reason: constipation Stop: 03/13/25 23:03 Discontinued Medications Hydrocodone Bitart/Acetaminophen (Hydrocodone/Apap 7.5/325 Tablet) 1 tab PO X1 ONE Stop: 02/11/25 18:29 Last Admin: 02/11/25 18:41 Dose: 1 tab Aspirin (Aspirin 325 Mg Tablet) 325 mg PO X1 ONE Stop: 02/11/25 21:39 Last Admin: 02/11/25 21:55 Dose: 325 mg Diphenhydramine HCl (Diphenhydramine 25 Mg Capsule) 25 mg PO X1 ONE Stop: 02/11/25 19:30 Last Admin: 02/11/25 19:51 Dose: 25 mg Sodium Chloride (Ns) 1,000 mls @ 999 mls/hr IV .Q1H1M ONE Stop: 02/11/25 21:43 Last Infusion: 02/11/25 22:55 Dose: Infused Morphine Sulfate (Morphine Sulf Inj 10 Mg/Ml Vial) 4 mg IVP X1 ONE Stop: 02/11/25 20:39 Last Admin: 02/11/25 21:40 Dose: 4 mg Ondansetron HCl (Ondansetron Inj 2 Mg/Ml Inj 2 Ml) 4 mg IVP X1 ONE; Protocol Stop: 02/11/25 20:39 Last Admin: 02/11/25 21:39 Dose: 4 mg Prochlorperazine Maleate (Prochlorperazine Maleate 5 Mg Tablet) 10 mg PO X1 ONE Stop: 02/11/25 19:30 Last Admin: 02/11/25 19:51 Dose: 10 mg Assessment & Plan Assessment Linda Damian is a 44-year-old F with no PMH who presents today with stroke-like symptoms. Patient was admitted for the work-up and management of stroke-like symptoms and headache. #Stroke r/o Differential Dx: complex migraine, TIA Per tele-neurology, patient's NIHSS Score was 2, NIHSS Free Text was left facial numbness, mild lower facial asymmetry , and Pre-Morbid Modified Allen Scale was 0. Head CT was negative for acute hemorrhage, mass effect or midline shift. Head/neck CTA was negative for significant neck arterial stenoses or cerebral abscess or arterial occlusions. -Per tele-neurology recommendations: 1. Stroke/Telemetry Floor admission 2. Neuro Check (Q4) 3. Bedside Swallow Eval (completed but patient failed and Speech Eval was ordered) 4. DVT Prophylaxis (heparin) 5. IV Fluids, Normal Saline 6. Head of Bed 30 Degrees 7. Euglycemia and Avoid Hyperthermia (PRN Acetaminophen) 8. Initiate or continue Aspirin 325 MG daily 9. Antihypertensives PRN if Blood pressure is greater than 220/120 or there is a concern for End organ damage/contraindications for permissive HTN. If blood pressure is greater than 220/120 give labetalol PO or IV or Vasotec IV with a goal of 15% reduction in BP during the first 24 hours. 10. MRI head with and without contrast (already ordered) -Other stroke management initiated by Internal Medicine team 1. Started po atorvastatin 40 mg qHS 2. Ordered hemoglobin A1c 3. Ordered lipid panel 4. Ordered coagulation panel 5. Ordered magnesium and phosphorus levels 6. Ordered TSH levels Hospital Management: Disposition: being worked up for stroke pending head MRI Fluids: none Diet: NPO (pending speech evaluation) Lines: none DVT Prophylaxis: SCDs Julio: not in place CODE STATUS: Full Code I have examined the patient and conferred with my attending, Dr. Ewing, and my senior resident, Dr. Trujillo, regarding them. Noel Becerra DO PGY-1 Internal Medicine Attending Provider Attestation/Addendum After examination of the patient and review of the clinical data I feel that this patient needs admission to the hospital for further treatment/evaluation. I have discussed and was present for the essential components of the history, physical examination, diagnosis, and treatment plan with the resident. I agree with the patient's care as documented by the resident and amended herein by me. Rayray Ewing DO. Although this document has been carefully reviewed, there may still be some phonetic and other typographical errors. These errors are purely grammatical due to imperfections in the software program and should not be construed in any way to compromise the substance of the patient's medical care during this visit. Patient seen and evaluated in the ED. 44-year-old female with no reported past medical history, presented to the ED with strokelike symptoms particularly left facial droop, nausea and vomiting and some sensory deficits in the upper extremities. Patient also endorsed a severe stabbing headache which occurred earlier today lasting 2 to 3 minutes which she has never had before. No history of migraine headaches however she does endorse a history of caffeine headaches however she states she is cut down on her caffeine. At time of my evaluation, patient states her symptoms have mostly resolved. Patient subsequently admitted for stroke workup. In the ED, vital signs stable, patient was afebrile, patient on room air SpO2 98%, normotensive. CBC unremarkable, BMP unremarkable, CT head negative for any acute intracranial pathology or acute stroke, CTA head unremarkable. Urinalysis positive, however patient denied any symptoms. Teleneurology consulted in the ED recommended usual stroke precautions, MRI, permissive hypertension and aspirin 325 mg daily. Patient subsequently admitted to telemetry, in-house neurology was consulted, an echocardiogram was ordered, neurochecks every 4 hours, head of bed 30 degrees, speech therapy ordered, MRI brain ordered, urine culture was ordered in the ED but as stated above, the patient was asymptomatic hence we will not start antibiotics, aspirin 325 mg daily has been ordered, will adhere to permissive hypertension over the next 24 to 48 hours, VTE prophylaxis in place an LDL and A1c are pending, physical therapy has been ordered. Will continue to monitor closely overnight.
--- NOTE | 2025-02-11 23:44 | PC.NURSE ---
Report given to HAYDEE Seo
[2025-02-12 00:12] LABS: Amphetamine/Methamp Scrn,U Negative (Negative); Barbiturate Screen,Urine Negative (Negative); Benzodiazepines Screen,Urine Negative (Negative); Benzoylecgonine Screen, Ur Negative (Negative); Fentanyl Screen,Urine Negative (Negative); Opiate Screen,Urine Positive (Negative); THC Screen,Urine Negative (Negative)
[2025-02-12 00:16] VITALS: BMI 26.7
--- NOTE | 2025-02-12 00:39 | ECHO_ITS ---
Transthoracic Echo Report Ht (in): 67 Wt (lb): 170 Exam Location: Echo Lab Status: Inpatient Spray Painter: Gretchen Ramirez Indications: Procedure Performed: BP: 96 / 50 HR: 38 Technical Quality: Technically difficult study MEASUREMENTS (Male / Female) Normal Values 2D ECHO LV Diastolic Diameter PLAX 3.7 cm 4.2 - 5.9 / 3.9 - 5.3 cm LV Systolic Diameter PLAX 2.7 cm IVS Diastolic Thickness 0.6 cm 0.6 - 1.0 / 0.6 - 0.9 cm LVPW Diastolic Thickness 0.9 cm 0.6 - 1.0 / 0.6 - 0.9 cm LV Relative Wall Thickness 0.4 LVOT Diameter 1.7 cm Aortic Root Diameter 2.5 cm LV Ejection Fraction MOD 4C 55.5 % LV Cardiac Index MOD 4C 900.6 cm?/min?m? LV Ejection Fraction 4C AL 54.2 % LV Cardiac Index 4C AL 902.0 cm?/min?m? LA Volume Index 9.6 cm?/m? 16 - 28 cm?/m? Ascending Aorta Diameter 2.3 cm M-MODE Aortic Root Diameter MM 2.3 cm LA Systolic Diameter MM 3.0 cm LA Ao Ratio MM 1.3 AV Cusp Separation MM 1.7 cm DOPPLER AV Peak Velocity 127.0 cm/s AV Peak Gradient 6.5 mmHg AV Mean Gradient 2.0 mmHg AV Velocity Time Integral 23.8 cm LVOT Peak Velocity 93.7 cm/s LVOT Peak Gradient 3.5 mmHg LVOT Velocity Time Integral 19.3 cm LVOT Cardiac Index 865.2 cm?/min?m? AV Area Cont Eq vti 1.8 cm? AV Area Cont Eq pk 1.7 cm? MV Area PHT 6.3 cm? Mitral E Point Velocity 44.1 cm/s Mitral A Point Velocity 65.0 cm/s Mitral E to A Ratio 0.7 LV E' Lateral Velocity 10.3 cm/s Mitral E to LV E' Lateral Ratio 4.3 LV E' Septal Velocity 10.9 cm/s Mitral E to LV E' Septal Ratio 4.0 TR Peak Velocity 185.3 cm/s TR Peak Gradient 13.7 mmHg PV Peak Velocity 119.0 cm/s PV Peak Gradient 5.7 mmHg FINDINGS Left Ventricle Normal left ventricular size, wall thickness, systolic function with no obvious regional wall motion abnormalities. The ejection fraction is visually estimated at 55-60%. There is grade I diastolic dysfunction of the left ventricle (impaired relaxation pattern). Right Ventricle The right ventricle is normal in size and systolic function. The estimated right ventricular systolic pressure, 36 mmHg. RAP 15. Left Atrium The left atrium is normal by two-dimensional, color flow and Doppler imaging with no structural abnormalities, no thrombus formation present. Right Atrium The right atrium is normal by two-dimensional imaging, color flow and Doppler imaging with no structural abnormalities, no thrombus formation present. Atrial Septum The interatrial septum appears normal with no evidence of a shunt. Aorta The aorta is normal by two-dimensional, color flow and Doppler interrogation. Mitral Valve The mitral valve is normal by two-dimensional, color flow and Doppler interrogation. Trace mitral regurgitation. Aortic Valve The aortic valve is trileaflet and normal by two-dimensional, color flow and Doppler interrogation. There is no significant aortic valve regurgitation. Tricuspid Valve The tricuspid valve is normal by two-dimensional, color flow and Doppler interrogation. There is mild tricuspid valve regurgitation. Pulmonic Valve The pulmonic valve is not well visualized. There is no significant pulmonic valve regurgitation. Vessels Less than 50% respiratory change in dimension of the inferior vena cava abnormal. Pericardium The pericardium is normal by two-dimensional imaging. There is no significant pericardial effusion. CONCLUSIONS Indication: Stroke Bubble study negative for PFO and ASD. Consider WALDEMAR if high index of clinical suspicion for cardioembolic stroke. Normal LV size and wall thickness. Estimated EF at 55-60%. Grade I diastolic dysfunction. Normal RV size and function. The estimated RVSP, 36 mmHg. RAP 15. Mild MR. Trace TR. IVC dilated and in the collapses less than 50% on inspiration. Wesley Saha (Electronically Signed) Final Date: 12 February 2025 13:12
[2025-02-12] MEDS: HEPARIN SOD INJ 5000 UNIT/ML VIAL SC ×3 (01:19→21:56)
[2025-02-12] MEDS: ACETAMINOPHEN 325 MG TABLET 650 MG PO (01:24)
[2025-02-12] MEDS: KETOROLAC INJ 30 MG/ML VIAL IVP (02:40)
[2025-02-12 04:00] VITALS: BP 96/50; PULSE 40; PULSE 54; RESP 17; TEMP 36.1; O2SAT 98
[2025-02-12 05:22] VITALS: PULSE 38
[2025-02-12 06:32] LABS: INR 1.1 (0.9-1.3); Partial Thromboplastin Time 28.1 Seconds (22.0-36.0); Prothrombin Time 11.6 Seconds (9.0-12.2)
[2025-02-12 06:33] LABS: Basophils # (Auto) 0.1 Thou/mm3 (0.0-0.2); Basophils % (Auto) 1 % (0-2.5); Eosinophils # (Auto) 0.3 Thou/mm3 (0.0-0.5); Eosinophils % (Auto) 4 % (0-10); Hematocrit 34.6 % (36.0-46.0); Hemoglobin 11.5 g/dL (12.0-16.0); Immature Granulocytes Auto 0.01 Thou/mm3 (0.00-0.00); Lymphocytes # (Auto) 2.5 Thou/mm3 (1.0-4.8); Lymphocytes % (Auto) 40 % (10-50); Mean Corpuscular HGB Conc 33.2 g/dl (31.0-37.0); Mean Corpuscular Hemoglobin 30.8 pg (25.0-35.0); Mean Corpuscular Volume 93 fL (80-100); Monocytes # (Auto) 1.3 Thou/mm3 (0.0-0.8); Monocytes % (Auto) 20 % (0-12); Neutrophils # (Auto) 2.2 Thou/mm3 (1.8-7.7); Neutrophils % (Auto) 35 % (37-80); Nucleated Red Blood Cell # 0.00 Thou/mm3 (0.00-0.00); Nucleated Red Blood Cell % 0 /100 WBC (0); Platelet Count 238 Thou/mm3 (140-440); RDW Standard Deviation 42.9 fL (36.4-46.3); Red Blood Count 3.73 Miln/mm3 (4.00-5.20); White Blood Count 6.3 Thou/mm3 (3.6-11.0)
[2025-02-12 06:54] LABS: Alanine Aminotransferase 25 U/L (10-49); Albumin, Serum 3.7 gm/dL (3.5-5.0); Albumin/Globulin Ratio 1.5 (1.2-2.2); Alkaline Phosphatase 78 U/L (46-116); Anion Gap 8 (7-16); Aspartate Amino Transferase 28 U/L (0-34); BUN/Creatinine Ratio 9 Ratio (12-20); Bilirubin,Total 0.3 mg/dL (0.3-1.2); Blood Urea Nitrogen 10 mg/dL (9-23); Calcium 8.9 mg/dL (8.3-10.6); Calcium (Corrected) 9.1 mg/dL (8.5-10.1); Carbon Dioxide 26.9 mMol/L (20.0-31.0); Cardiac Risk Estimate 6.7 RATIO (3.7-5.6); Chloride 108 mMol/L (98-107); Cholesterol 227 mg/dL (132-200); Creatinine (Component) 1.1 mg/dL (0.6-1.3); Estimated Creatinine Clearance 70.7 mL/min (>60); Globulin 2.5 gm/dL (2.3-3.5); Glucose 94 mg/dL (74-106); HDL Cholesterol 34 mg/dL (40-60); LDL Cholesterol,Calculated 164 mg/dL (0-130); Magnesium 2.1 mg/dL (1.6-2.6); Osmolality,Calculated 283 (275-295); Phosphorous 3.6 mg/dL (2.4-5.1); Potassium 4.1 mMol/L (3.4-5.1); Sodium 143 mMol/L (136-145); Thyroid Stimulating Hormone 1.95 uIU/mL (0.55-4.78); Total Protein 6.2 gm/dL (5.7-8.2); Triglycerides 143 mg/dL (30-150); eGFR > 60 See Note
[2025-02-12 07:16] LABS: Glucose Estimated Average 100 mg/dL (80-131); Hemoglobin A1C 5.1 % Hgb (4.8-6.0)
--- NOTE | 2025-02-12 07:52 | PC.NURSE ---
patient's heart rate went down as low as 35 and patient is complaining of headache. called and mad aware. awaiting for pain med to be order.
[2025-02-12 08:00] VITALS: BP 106/63; PULSE 44; PULSE 45; RESP 15; TEMP 36; O2SAT 98
[2025-02-12] MEDS: ACETAMINOPHEN IVPB 1,000 MG/100 ML VIAL 250 MG IV (08:38)
[2025-02-12 12:00] VITALS: BP 94/52; PULSE 42; PULSE 52; RESP 14; TEMP 35.9; O2SAT 99
[2025-02-12 12:00] LABS: Sed Rate (ESR) 12 mm/hr (0-20)
--- NOTE | 2025-02-12 12:56 | ESPR_ITS ---
<Statement entered by Nancy Chu MD - 02/12/25 15:43> In summary: 44-year-old female with no PMHx, admitted for strokelike symptoms with left facial numbness and left-sided face pain. Imaging have been negative for acute pathology including head CT and head/neck CTA. Her symptoms likely consistent with complex migraines given history of migraines, or stress-induced neurological symptoms. We ordered ESR/CRP to rule out GCA and were negative. Continued on stroke protocol, on statin and ASPIRIN 325 mg daily. Lipid panel showed TG 143, cholesterol 227, HDL 34. Normal thyroid function and A1c 5.1. BP has been on the softer side, and she has asymptomatic bradycardia for which cardiology was consulted. Echo showed EF 55-60%, negative bubble study, and grade 1 diastolic dysfunction. Evidently, HR recovered with ambulation with cardiology. Although she does have an extensive history of MS in family, cousin who of an MS at 43, and dad of an MS at young age. Cardiology recommended outpatient workup for ischemic cardiomyopathy. Pending MRI in the morning. Pending neurology recommendation. Case was discussed with attending physician. Nancy Chu DO PGY II This document was transcribed using voice recognition technology. Minor inaccuracies may be present. Documentation for date of: 02/12/25 Subjective Subjective Interval history: Patient examined at bedside today. No acute overnight events. Patient endorses only being able to sleep a couple hours overnight due to the left sided pressure like headache. She states that the pain is better, but it ranges from a 4 at rest to a 6 with movement of her head. She also confirms intermittent blurry vision associated with her headaches, as well as some SOB when she moves around in bed. She denies current chest pain, sob, fevers, or chills. Exam Vital Signs Temp Pulse Resp BP Pulse Ox O2 Del Method 96.8 F 44 L 15 106/63 98 Room Air 02/12/25 08:00 02/12/25 08:00 02/12/25 08:00 02/12/25 08:00 02/12/25 08:00 02/12/25 08:00 Narrative Exam General: Patient is A&O x4, NAD, pleasant conversant HEENT: Normocephalic, atraumatic, PERRL, EOMI Cardio: Normal S1, S2, no rubs murmurs or gallops Pulm: Lungs clear to auscultation bilaterally, with no adventitious breath sounds. Abdominal: Bowel sounds present in all quadrants, abdomen is soft and nontender with no guarding or rigidity. MSK: Strength is 5/5 in bilateral upper and lower extremities. Neuro: II: Vision is currently at baseline III, IV, : EOMI, no nystagmus, V: Asymmetric sensation in V1, V2 and V3 distribution to crude touch (reduced sensation of left side). Jaw strength normal. VII: No facial asymmetry, able to smile symmetrically and BL good eye closure. VIII: Hearing intact in both ears per finger rubbing. IX, X: Symmetrical palate elevation, uvula in midline. XI: Symmetrical head rotation and shoulder shrug. IX, XII: Midline tongue protrusion. No fasciculations or atrophy noted. Objective Labs 02/13/25 04:50 02/13/25 04:50 Labs: Laboratory Results - last 24 hr 02/11/25 02/11/25 02/12/25 21:09 21:40 04:42 WBC 7.1 6.3 RBC 4.13 3.73 L Hgb 12.8 11.5 L Hct 37.1 34.6 L MCV 90 93 MCH 31.0 30.8 MCHC 34.5 33.2 RDW Std Deviation 41.3 42.9 Plt Count 272 238 D Neut % (Auto) 56 35 L Lymph % (Auto) 26 40 [place]ann[place] % (Auto) 15 H 20 H Eos % (Auto) 3 4 Baso % (Auto) 0 1 Neut # (Auto) 4.0 2.2 Lymph # (Auto) 1.9 2.5 Fannin # (Auto) 1.1 H 1.3 H Eos # (Auto) 0.2 0.3 Baso # (Auto) 0.0 0.1 Immature Gran # (Auto) 0.02 H 0.01 H Absolute Nucleated RBC 0.00 0.00 Immature Gran % 0 0 Nucleated RBC % 0 0 ESR 12 PT 11.4 11.6 INR 1.0 1.1 APTT 27.6 28.1 Sodium 139 143 Potassium 3.7 4.1 Chloride 104 108 H Carbon Dioxide 26.2 26.9 Anion Gap 9 8 BUN 12 10 Creatinine 1.1 1.1 Estim Creat Clear Calc 70.1 70.7 eGFR > 60 > 60 BUN/Creatinine Ratio 11 L 9 L Glucose [address] Glu mg/dL 100 Hemoglobin A1c 5.1 Calculated Osmolality 277 283 Calcium 9.8 8.9 Corrected Calcium 9.8 9.1 Phosphorus 3.6 Magnesium 2.1 2.1 Total Bilirubin 0.4 0.3 AST 31 28 ALT 29 25 Alkaline Phosphatase 91 78 Troponin I < 0.002 Total Protein 7.4 6.2 Albumin 4.5 3.7 D Globulin 2.9 2.5 Albumin/Globulin Ratio 1.6 1.5 Triglycerides 143 Cholesterol 227 H LDL Cholesterol, Calc 164 H HDL Cholesterol 34 L Cholesterol/HDL Ratio 6.7 H TSH 1.95 Ur Collection Type Clean Catch Urine Color Yellow Urine Clarity Clear Urine pH 6.0 Ur Specific [place] 1.020 Urine Protein Trace Urine Glucose (UA) Negative Urine Ketones Negative Urine Blood Trace Urine Nitrite Negative Urine Bilirubin Negative Urine Urobilinogen (Auto) Negative Ur Leukocyte Esterase Positive Urine RBC 17 H Urine WBC 12 H Ur Squamous Epith Cells 6 H Urine Bacteria None Urine Opiates Screen Positive A Urine Fentanyl Screen Negative Ur Barbiturates Screen Negative U Amphetamin/Meth Scrn Negative U Benzodiazepines Scrn Negative U Cocaine Metab Screen Negative U Marijuana (THC) Screen Negative HCG (Qual) Negative Quality Measures Quality Measures none Assessment & Plan Assessment Current Active Medications: Generic Name Dose Route Start Last Admin Trade Name Abiel PRN Reason Stop Dose Admin Acetaminophen 650 mg 02/11/25 23:04 02/12/25 01:24 Acetaminophen 325 Mg Tablet PO 03/13/25 23:03 650 mg Q6H PRN Administration PAIN SCALE 1-3 (mild Acetaminophen 650 mg 02/12/25 12:52 Acetaminophen 325 Mg Tablet PO 03/14/25 12:51 Q4HR PRN Fever >101, pain Aspirin 325 mg 02/12/25 09:00 02/12/25 08:57 Aspirin 325 Mg Tablet PO 03/14/25 08:59 Not Given QDAY [facility] Atorvastatin Calcium 40 mg 02/12/25 21:00 Atorvastatin Calcium 20 Mg Tablet PO 03/14/25 20:59 HS LESLIE Gabapentin 100 mg 02/12/25 13:00 Gabapentin 100 Mg Capsule PO 03/14/25 12:59 BID [facility] Heparin Sodium (Porcine) 5,000 unit 02/12/25 01:03 02/12/25 08:52 Heparin Sod Inj 5000 Unit/Ml Vial SC 02/26/25 01:02 5,000 unit Q12HR LESLIE Administration Hydralazine HCl 10 mg 02/12/25 10:23 Hydralazine Inj 20 Mg/Ml Vial IVP 03/14/25 10:22 Q6H PRN Systolic >220/120 and HR <80 Lorazepam 0.5 mg 02/12/25 12:55 Lorazepam 0.5 Mg Tablet PO 02/17/25 12:54 X1 PRN Before MRI for anxiety Ondansetron HCl 4 mg 02/11/25 20:58 Ondansetron Inj 2 Mg/Ml Inj 2 Ml IVP 03/13/25 20:57 Q4HR PRN NAUSEA OR VOMITING Sennosides 1 tab 02/11/25 23:04 Senna Tablet PO 03/13/25 23:03 QDAY PRN constipation Protocol Plan Assessment Linda Damian is a 44-year-old F with no PMH who presented with stroke-like symptoms. Patient was admitted for the work-up and management of stroke-like symptoms and headache. #Stroke r/o Differential Dx: complex migraine, TIA, stress induced Patient endorses hx of migraines, and confirms acute stressors in her life recently Per tele-neurology, patient's NIHSS Score was 2, NIHSS Free Text was left facial numbness, mild lower facial asymmetry , and Pre-Morbid Modified Emmet Scale was 0. Head CT was negative for acute hemorrhage, mass effect or midline shift. Head/neck CTA was negative for significant neck arterial stenoses or cerebral abscess or arterial occlusions. Patient passed speech therapy swallow evaluation Patients facial asymmetry seems resolved, left facial sensation and left upper extremity is diminished but present. Coagulation panel/TSH/Mag/Phos wnl, Lipid panel reveals dyslipidemia Mag and phos wnl Plan -Appreciate Tele-Neurology recs -Neuro Check (Q4) -DVT Prophylaxis with heparin -IV Fluids, Normal Saline -Head of Bed 30 Degrees -Euglycemia and Avoid Hyperthermia (PRN Acetaminophen) -Aspirin 325 MG daily -Antihypertensives PRN if Blood pressure is greater than 220/120 or there is a concern for End organ damage/contraindications for permissive HTN. If blood pressure is greater than 220/120 give labetalol PO or IV or Vasotec IV with a goal of 15% reduction in BP during the first 24 hours. -F/u MRI head with and without contrast -po atorvastatin 40 mg qHS -Manage pain with Acetaminophen 650 mg po Q4, Gabapenin 100mg BID, Asymptomatic bradycardia Hypotension BP has been on the softer side, and she has asymptomatic bradycardia for which cardiology was consulted. Echo showed EF 55-60%, negative bubble study, and grade 1 diastolic dysfunction. Evidently, HR recovered with ambulation with cardiology. Although she does have an extensive history of MS in family, cousin who of an MS at 43, and dad of an MS at young age. Cardiology recommended outpatient workup for ischemic cardiomyopathy. ? continue monitoring Hospital Management Disposition: Telemetry Diet: Normal Diet Lines: none DVT Prophylaxis: Heparin Q12 CODE STATUS: Full Code Case and Plan discussed with my attending physician, Dr. Lynn, and my senior resident, Dr. Kimberley Hebert, [facility] Attending Provider Attestation/Addendum I have examined the patient, reviewed labs and imaging findings, discussed the case with the resident(s), and reviewed entered orders. I agree with the plan of care as outlined in this note, with these additional summaries/recommendations: Patient seen at bedside. She denies a previous history of similar symptoms. She does endorse significant life stressors and is currently going through a divorce. She still endorses headache although slightly improved. Slightly diminished sensation on left side of face. No facial asymmetry noted. CT head without contrast negative for acute hemorrhage, mass effect or midline shift. CTA negative for LVO and significant stenosis. Continue aspirin 325 mg p.o. daily and atorvastatin 40 mg p.o. at bedtime. MRI brain pending. Echocardiogram showed negative bubble study and appropriate ejection fraction. In-house neurology consulted, recommendations appreciated. Etiology likely complex migraine versus acute CVA. Pending physical therapy and speech therapy referral. Dr. Shane MD
[2025-02-12 13:15] LABS: C-Reactive Protein 1.0 mg/dL (0.0-0.9)
[2025-02-12] MEDS: GABAPENTIN 100 MG CAPSULE PO ×2 (13:21→21:55)
--- NOTE | 2025-02-12 14:44 | ESCONSULT_ITS ---
<Statement entered by Luana Webb MD - 02/12/25 18:22> I personally evaluated examined the patient along with resident physician PGY 2 Dr. Chapman patient appears to family history of heart disease came with atypical chest pain and has marked sinus bradycardia in the 40s sometimes low 40s but mostly 58 heart rate goes up to 60 when she walks given 20 feet she has asymptomatic bradycardia no need for permanent pacemaker implantation or any other workup evaluate thyroid function make sure there is no hypothyroidism patient can be discharged if she remains she definitely will require an outpatient with risk factors of CAD and atypical chest pain I evaluated patient with resident physician agree with the treatment plan recommendation as documented HPI Data of Consult Requesting Physician: William Ewing DO Admitting Provider: William Ewing DO Attending Provider: William Ewing DO Primary Care Provider: Lalo Quintanilla MD Consult Narrative History of present illness: Ms. Damian is a 44-year-old F with no PMH presented to the ED on 02/11 complaining of severe left-sided headache accompanied with left-sided facial numbness and drooping. Patient is admitted to the hospital for stroke workup. CT of the head and CTA of head and neck are negative for acute hemorrhage, mass effect or midline shift as well as absent for cerebral abscesses or arterial occlusions. Patient is pending an MRI scheduled for tomorrow. Cardiology is consulted due to bradycardia Per patient she has been having atypical chest pain on the left side of her chest radiating to the arm lasting approximately 5 to 10 minutes. Patient states she has seen her primary care many times and has addressed this concern however repeat EKG has been within normal limits without any acute changes. Patient has never been referred to insurance claims assistant. Patient states she has hot and cold flashes accompanied with palpitations and dizziness. Denies any shortness of breath, orthopnea or PND. Patient states approximately 3 months ago she had a left-sided chest pain which caused her to have a syncopal episode and was seen by her primary care at that time. Patient also has an extensive family history of DC on her paternal side at a very young age. Patient had a cousin at the age of 43 from an DC. Patient states yesterday when she had the chest pain she also had the headache on the left side and the facial droop. PMH: No known past medical history PSH: Appendectomy, tubal ligation, hysterectomy SH: Denies smoking, alcohol or use of illicit drugs cc:: cc: William Ewing DO Review of Systems Review of Systems Systems Reviewed: All systems reviewed, normal except as documented Exam Vital Signs Temp Pulse Resp BP Pulse Ox O2 Del Method 96.7 F L 42 L 14 94/52 L 99 Room Air 02/12/25 12:00 02/12/25 12:00 02/12/25 12:00 02/12/25 12:00 02/12/25 12:00 02/12/25 12:00 Narrative Exam GENERAL: A&Ox3 . Awake, Not in acute distress NEURO: no focal neurological deficits HEENT: Atraumatic, Normocephalic. mucous membranes moist. Eyes open, symmetrical, & clear HEART: Normal Heart Sounds LUNGS: Clear to auscultation with no wheezing or crackles. ABDOMEN: soft, non-distended, non-tender, bowel sounds heard, no guarding or rebound tenderness SKIN: No Rash or ecchymoses EXTREMITIES: No edema, tenderness, able to move all 4 extremities, pedal pulses palpated Results Labs 02/12/25 04:42 02/12/25 04:42 Labs: Short CBC 02/11/25 02/12/25 Range/Units 21:09 04:42 WBC 7.1 6.3 (3.6-11.0) Thou/mm3 Hgb 12.8 11.5 L (12.0-16.0) g/dL Hct 37.1 34.6 L (36.0-46.0) % Plt Count 272 238 D (140-440) Thou/mm3 BMP 02/11/25 02/12/25 21:09 04:42 Sodium 139 143 Potassium 3.7 4.1 Chloride 104 108 H Carbon Dioxide 26.2 26.9 BUN 12 10 Creatinine 1.1 1.1 Glucose 99 94 Calcium 9.8 8.9 Cardiac Enzymes 02/11/25 Range/Units 21:09 Troponin I < 0.002 (0.0-0.045) ng/mL Liver Function 02/11/25 02/12/25 Range/Units 21:09 04:42 Total Bilirubin 0.4 0.3 (0.3-1.2) mg/dL AST 31 28 (0-34) U/L ALT 29 25 (10-49) U/L Alkaline Phosphatase 91 78 (46-116) U/L Albumin 4.5 3.7 D (3.5-5.0) gm/dL Urine 02/11/25 Range/Units 21:40 Urine Color Yellow (Lt Yel-Yel) Urine Clarity Clear (Clear/Hazy) Urine pH 6.0 (5.0-7.0) Ur Specific [place] 1.020 (1.001-1.035) Urine Protein Trace (Neg - Trace) Urine Glucose (UA) Negative (Negative) Quality Measures Quality Measures none Medications Home Medications and Allergies Home Medications ?Medication ?Instructions ?Recorded ?Confirmed ?Type No Known Home Medications 02/12/2501/31 History Allergies Allergy/AdvReac Type Severity Reaction Status Date / Time acetaminophen (From NyQuil) Allergy Severe Hives Verified 02/11/25 17:44 dextromethorphan (From Allergy Severe Hives Verified 02/11/25 17:44 NyQuil) doxylamine (From NyQuil) Allergy Severe Hives Verified 02/11/25 17:44 pseudoephedrine (From Allergy Severe Hives Verified 02/11/25 17:44 DayQuil Sinus Pressure/Pain) blueberry Allergy Verified 02/12/25 00:28 ibuprofen Allergy Verified 02/11/25 17:44 latex AdvReac Intermediate Rash Verified 02/11/25 17:44 BEE STING Allergy Severe Anaphylaxis Uncoded 02/11/25 17:44 Visit Medications Acetaminophen (Acetaminophen 325 Mg Tablet) 650 mg PO Q4HR PRN PRN Reason: Fever >101, pain Stop: 03/14/25 12:51 Aspirin (Aspirin 325 Mg Tablet) 325 mg PO QDAY LESLIE Stop: 03/14/25 08:59 Last Admin: 02/12/25 08:57 Dose: Not Given Atorvastatin Calcium (Atorvastatin Calcium 20 Mg Tablet) 40 mg PO HS LESLIE Stop: 03/14/25 20:59 Gabapentin (Gabapentin 100 Mg Capsule) 100 mg PO BID LESLIE Stop: 03/14/25 12:59 Last Admin: 02/12/25 13:21 Dose: 100 mg Heparin Sodium (Porcine) (Heparin Sod Inj 5000 Unit/Ml Vial) 5,000 unit SC Q12HR LESLIE Stop: 02/26/25 01:02 Last Admin: 02/12/25 08:52 Dose: 5,000 unit Hydralazine HCl (Hydralazine Inj 20 Mg/Ml Vial) 10 mg IVP Q6H PRN PRN Reason: Systolic >220/120 and HR <80 Stop: 03/14/25 10:22 Lorazepam (Lorazepam 0.5 Mg Tablet) 0.5 mg PO X1 PRN PRN Reason: Before MRI for anxiety Stop: 02/17/25 12:54 Ondansetron HCl (Ondansetron Inj 2 Mg/Ml Inj 2 Ml) 4 mg IVP Q4HR PRN PRN Reason: NAUSEA OR VOMITING Stop: 03/13/25 20:57 Sennosides (Senna Tablet) 1 tab PO QDAY PRN; Protocol PRN Reason: constipation Stop: 03/13/25 23:03 Discontinued Medications Acetaminophen (Acetaminophen 325 Mg Tablet) 650 mg PO Q6H PRN PRN Reason: PAIN SCALE 1-3 (mild Stop: 03/13/25 23:03 Last Admin: 02/12/25 01:24 Dose: 650 mg Hydrocodone Bitart/Acetaminophen (Hydrocodone/Apap 7.5/325 Tablet) 1 tab PO X1 ONE Stop: 02/11/25 18:29 Last Admin: 02/11/25 18:41 Dose: 1 tab Aspirin (Aspirin 325 Mg Tablet) 325 mg PO X1 ONE Stop: 02/11/25 21:39 Last Admin: 02/11/25 21:55 Dose: 325 mg Diphenhydramine HCl (Diphenhydramine 25 Mg Capsule) 25 mg PO X1 ONE Stop: 02/11/25 19:30 Last Admin: 02/11/25 19:51 Dose: 25 mg Sodium Chloride (Ns) 1,000 mls @ 999 mls/hr IV .Q1H1M ONE Stop: 02/11/25 21:43 Last Infusion: 02/11/25 22:55 Dose: Infused Acetaminophen (Ofirmev Inj) 1,000 mg in 100 mls @ 250 mls/hr IV Q6HR PRN PRN Reason: Headache, pain or fever 100.1 Stop: 02/13/25 00:23 Last Admin: 02/12/25 08:38 Dose: 250 mls/hr Ketorolac Tromethamine (Ketorolac Inj 30 Mg/Ml Vial) 30 mg IVP X1 ONE Stop: 02/12/25 02:33 Last Admin: 02/12/25 02:40 Dose: 30 mg Labetalol HCl (Labetalol Inj 5 Mg/Ml Vial 20 Ml) 10 mg IVP Q4HR PRN PRN Reason: Systolic >220/120 Stop: 03/14/25 00:36 Morphine Sulfate (Morphine Sulf Inj 10 Mg/Ml Vial) 4 mg IVP X1 ONE Stop: 02/11/25 20:39 Last Admin: 02/11/25 21:40 Dose: 4 mg Ondansetron HCl (Ondansetron Inj 2 Mg/Ml Inj 2 Ml) 4 mg IVP X1 ONE; Protocol Stop: 02/11/25 20:39 Last Admin: 02/11/25 21:39 Dose: 4 mg Prochlorperazine Maleate (Prochlorperazine Maleate 5 Mg Tablet) 10 mg PO X1 ONE Stop: 02/11/25 19:30 Last Admin: 02/11/25 19:51 Dose: 10 mg Assessment & Plan Plan Ms. Damian is a 44-year-old F with no PMH presented to the ED on 02/11 complaining of severe left-sided headache accompanied with left-sided facial numbness and drooping. Patient is admitted to the hospital for stroke workup. Cardiology is consulted due to bradycardia #Asymptomatic bradycardia #Atypical chest pain - Patient describes intermittent history of left-sided chest pain radiating to left arm lasting approximately 5 to 10 minutes. During the chest pain patient also complains of palpitations and dizziness. - EKG shows sinus bradycardia with a rate of 53 and QTc 391 Echo done on 02/12/2025: Bubble study negative for PFO and ASD. Normal LV size and wall thickness. Estimated EF at 55-60%. Grade I diastolic dysfunction. Normal RV size and function. The estimated RVSP, 36 mmHg. RAP 15. Mild MR. Trace TR. IVC dilated and in the collapses less than 50% on inspiration. Plan: - On ambulation patient's heart rate improved to 60s, patient continues to be asymptomatic, denies any dizziness - Patient's bradycardia is asymptomatic therefore will not need a pacemaker at this time -Patient's description of the chest pain is likely atypical chest pain triggered by exertional or emotional stress including anxiety. The pain goes away without intervention - Due to patient's family history of DC at a young age patient will need outpatient workup and referral to insurance claims assistant #Acute CVA rule out -CT of head and CTA of head/neck are negative -MRI is pending Management as per neurology and primary team Thank you for the consult and allowing us to participate in the care of the patient. Cardiology will continue to follow. Assessment and plan discussed with my attending Web Operations Manager Dr. Jon Chapman (PGY-2)- Internal medicine resident
--- NOTE | 2025-02-12 15:29 | PC.SS ---
This is 69-year-old, , single female who presented to the ED due to suffering from weakness. Patient appeared alert and oriented to self. Patient's thought process was organized but delayed in process. Patient reported that she lives with Jennifer. She is independent with ADLs, no DME use. Patient is unknown of a PCP. Patient reported that Jennifer can make all decisions on her behalf. SW attempted to contact Jennifer for collateral information with no success. When medically clear, patient will return home.
[2025-02-12 16:00] VITALS: BP 94/63; PULSE 45; PULSE 70; RESP 16; TEMP 36.1; O2SAT 99
[2025-02-12] MEDS: HYDROcodone/APAP 7.5/325 TABLET 1 TAB PO (16:17)
--- NOTE | 2025-02-12 18:56 | PD.RESCONSUL ---
HPI Data of Consult Requesting Physician: William Ewing DO Admitting Provider: William Ewing DO Attending Provider: William Ewing DO Primary Care Provider: Lalo Quintanilla MD Consult Narrative History of present illness: Ms. Damian is a 44-year-old woman with past medical history of uterine cancer in remission and past smoking history of half pack per day for 26 years who presented to the ED with headache and nausea, left arm numbness and weakness, left face weakness, facial twitching, chest pain, left blurry vision. Initial NIHSS 2. Patient examined at bedside left lower facial droop decreased sensation on the left side of her face than the right, and improved sensation of the left upper extremity compared to yesterday. Patient denies chest pain, headache, nausea, vomiting. No development of new symptoms. cc:: cc: William Ewing DO Review of Systems Review of Systems Narrative Review of Systems: 14 point review of systems negative other than HPI Exam Vital Signs Temp Pulse Resp BP Pulse Ox O2 Del Method 96.9 F 45 L 16 94/63 99 Room Air 02/12/25 16:00 02/12/25 16:00 02/12/25 16:00 02/12/25 16:00 02/12/25 16:00 02/12/25 16:00 Narrative Exam General: No acute distress, well nourished Eye: PERRL, EOMI, normal conjunctiva, no scleral icterus HENT: Normocephalic, atraumatic, hearing intact to conversation at normal volume, moist oral mucosa Neck: Supple, non-tender, no JVD, no lymphadenopathy Lungs: Non-labored respirations, symmetric chest rise Heart: Peripheral pulses intact bilaterally Abdomen: Soft, non-tender, non-distended Musculoskeletal: Normal range of motion and strength Skin: Skin is warm, dry, no rashes or lesions. Psychiatric: Cooperative, appropriate mood and affect Neurologic: Mental status: Orientation: Oriented to person, place, time, and situation Communication: Patient is cooperative and can follow simple instructions Language: Speech fluent, normal rate and volume, comprehension intact Cranial nerves: CN II: Visual loera intact CN III: Pupils equal, round, and reactive to light CN III, IV, : No gaze deviation, no nystagmus Horizontal pursuit: intact Vertical pursuit: intact Ptosis: none CN V: Facial sensation to light touch intact but decreased on left side at the forehead, cheeks, and jaw line. No deficit on right side CN VII: Lower left facial droop appreciated on smile CN VIII: Able to hear and respond to conversation at normal volume, intact to finger rub CN IX, X: Palate elevation symmetric, uvula midline CN XI: Head turn and shoulder shrug strong, symmetric bilaterally CN XII: Normal tongue protrusion without deviation, no fasciculations Motor: Normal bulk and tone No atrophy No abnormal movements or fasciculations Muscle strength: Shoulder abduction: R 5/5 L 5/5 Elbow flexion: R 5/5 L 5/5 Elbow extension: R 5/5 L 5/5 Hip flexion: R 5/5 L 5/5 Hip extension: R 5/5 L 5/5 Knee flexion: R 5/5 L 5/5 Knee extension: R 5/5 L 5/5 Sensory: Bilateral upper and lower extremity sensation to light touch intact and symmetric. (Improved from previous exam) Reflexes: Biceps (C5-6): R 2+ L 2+ Brachioradialis (C5-6): R 2+ L 2+ Triceps (C7-8): R 2+ L 2+ Patellae (L3-4): R 2+ L 2+ Achilles (S1-2):R 2+ L 2+ No clonus Plantar reflex downgoing bilaterally Cerebellum: RUE: No dysmetria (finger to nose) LUE: No dysmetria (finger to nose) Results Labs 02/13/25 04:50 02/13/25 04:50 Labs: Short CBC 02/11/25 02/12/25 Range/Units 21:09 04:42 WBC 7.1 6.3 (3.6-11.0) Thou/mm3 Hgb 12.8 11.5 L (12.0-16.0) g/dL Hct 37.1 34.6 L (36.0-46.0) % Plt Count 272 238 D (140-440) Thou/mm3 BMP 02/11/25 02/12/25 21:09 04:42 Sodium 139 143 Potassium 3.7 4.1 Chloride 104 108 H Carbon Dioxide 26.2 26.9 BUN 12 10 Creatinine 1.1 1.1 Glucose 99 94 Calcium 9.8 8.9 Cardiac Enzymes 07/12/25 Range/Units 21:09 Troponin I < 0.002 (0.0-0.045) ng/mL Liver Function 02/11/25 02/12/25 Range/Units 21:09 04:42 Total Bilirubin 0.4 0.3 (0.3-1.2) mg/dL AST 31 28 (0-34) U/L ALT 29 25 (10-49) U/L Alkaline Phosphatase 91 78 (46-116) U/L Albumin 4.5 3.7 D (3.5-5.0) gm/dL Urine 02/11/25 Range/Units 21:40 Urine Color Yellow (Lt Yel-Yel) Urine Clarity Clear (Clear/Hazy) Urine pH 6.0 (5.0-7.0) Ur Specific [place] 1.020 (1.001-1.035) Urine Protein Trace (Neg - Trace) Urine Glucose (UA) Negative (Negative) Quality Measures Quality Measures none Medications Home Medications and Allergies Home Medications ?Medication ?Instructions ?Recorded ?Confirmed ?Type No Known Home Medications 02/12/25 02/12/25 History Allergies Allergy/AdvReac Type Severity Reaction Status Date / Time acetaminophen (From NyQuil) Allergy Severe Hives Verified 02/11/25 17:44 dextromethorphan (From Allergy Severe Hives Verified 02/11/25 17:44 NyQuil) doxylamine (From NyQuil) Allergy Severe Hives Verified 02/11/25 17:44 pseudoephedrine (From Allergy Severe Hives Verified 02/11/25 17:44 DayQuil Sinus Pressure/Pain) blueberry Allergy Verified 02/12/25 00:28 ibuprofen Allergy Verified 02/11/25 17:44 latex AdvReac Intermediate Rash Verified 02/11/25 17:44 BEE STING Allergy Severe Anaphylaxis Uncoded 02/11/25 17:44 Visit Medications Acetaminophen (Acetaminophen 325 Mg Tablet) 650 mg PO Q4HR PRN PRN Reason: Fever >101, pain Stop: 03/14/25 12:51 Aspirin (Aspirin 325 Mg Tablet) 325 mg PO QDAY LESLIE Stop: 03/14/25 08:59 Last Admin: 02/12/25 08:57 Dose: Not Given Atorvastatin Calcium (Atorvastatin Calcium 20 Mg Tablet) 40 mg PO HS LESLIE Stop: 03/14/25 20:59 Gabapentin (Gabapentin 100 Mg Capsule) 100 mg PO BID LESLIE Stop: 03/14/25 12:59 Last Admin: 02/12/25 13:21 Dose: 100 mg Heparin Sodium (Porcine) (Heparin Sod Inj 5000 Unit/Ml Vial) 5,000 unit SC Q12HR LESLIE Stop: 02/26/25 01:02 Last Admin: 02/12/25 08:52 Dose: 5,000 unit Hydralazine HCl (Hydralazine Inj 20 Mg/Ml Vial) 10 mg IVP Q6H PRN PRN Reason: Systolic >220/120 and HR <80 Stop: 03/14/25 10:22 Lorazepam (Lorazepam 0.5 Mg Tablet) 0.5 mg PO X1 PRN PRN Reason: Before MRI for anxiety Stop: 02/17/25 12:54 Ondansetron HCl (Ondansetron Inj 2 Mg/Ml Inj 2 Ml) 4 mg IVP Q4HR PRN PRN Reason: NAUSEA OR VOMITING Stop: 03/13/25 20:57 Sennosides (Senna Tablet) 1 tab PO QDAY PRN; Protocol PRN Reason: constipation Stop: 03/13/25 23:03 Discontinued Medications Acetaminophen (Acetaminophen 325 Mg Tablet) 650 mg PO Q6H PRN PRN Reason: PAIN SCALE 1-3 (mild Stop: 03/13/25 23:03 Last Admin: 02/12/25 01:24 Dose: 650 mg Hydrocodone Bitart/Acetaminophen (Hydrocodone/Apap 7.5/325 Tablet) 1 tab PO X1 ONE Stop: 02/11/25 18:29 Last Admin: 02/11/25 18:41 Dose: 1 tab Hydrocodone Bitart/Acetaminophen (Hydrocodone/Apap 7.5/325 Tablet) 1 tab PO X1 ONE Stop: 02/12/25 16:03 Last Admin: 02/12/25 16:17 Dose: 1 tab Aspirin (Aspirin 325 Mg Tablet) 325 mg PO X1 ONE Stop: 02/11/25 21:39 Last Admin: 02/11/25 21:55 Dose: 325 mg Diphenhydramine HCl (Diphenhydramine 25 Mg Capsule) 25 mg PO X1 ONE Stop: 02/11/25 19:30 Last Admin: 02/11/25 19:51 Dose: 25 mg Sodium Chloride (Ns) 1,000 mls @ 999 mls/hr IV .Q1H1M ONE Stop: 02/11/25 21:43 Last Infusion: 02/11/25 22:55 Dose: Infused Acetaminophen (Ofirmev Inj) 1,000 mg in 100 mls @ 250 mls/hr IV Q6HR PRN PRN Reason: Headache, pain or fever 100.1 Stop: 02/13/25 00:23 Last Admin: 02/12/25 08:38 Dose: 250 mls/hr Ketorolac Tromethamine (Ketorolac Inj 30 Mg/Ml Vial) 30 mg IVP X1 ONE Stop: 02/12/25 02:33 Last Admin: 02/12/25 02:40 Dose: 30 mg Labetalol HCl (Labetalol Inj 5 Mg/Ml Vial 20 Ml) 10 mg IVP Q4HR PRN PRN Reason: Systolic >220/120 Stop: 03/14/25 00:36 Morphine Sulfate (Morphine Sulf Inj 10 Mg/Ml Vial) 4 mg IVP X1 ONE Stop: 02/11/25 20:39 Last Admin: 02/11/25 21:40 Dose: 4 mg Ondansetron HCl (Ondansetron Inj 2 Mg/Ml Inj 2 Ml) 4 mg IVP X1 ONE; Protocol Stop: 02/11/25 20:39 Last Admin: 02/11/25 21:39 Dose: 4 mg Prochlorperazine Maleate (Prochlorperazine Maleate 5 Mg Tablet) 10 mg PO X1 ONE Stop: 02/11/25 19:30 Last Admin: 02/11/25 19:51 Dose: 10 mg Assessment & Plan Plan # Left upper extremity weakness, resolved # Left-sided lower facial droop # Hyperlipidemia Patient initially presented with headache, nausea, left arm numbness and weakness, left face weakness with facial droop, facial twitch, chest pain, left blurry vision. Initial NIHSS 2 Patient has a smoking history of half pack per day for [address] head without contrast negative for acute hemorrhage, midline shift, mass effect. CTA head/neck negative for LVO A1c 5.1 Triglycerides WNL, cholesterol high 227, LDL high 164, HDL low 34. TSH within normal limits. UDS positive for opiates (pt given [place] and morphine in ED), hCG negative. EKG showed sinus bradycardia with heart rate 53, RBBB, QTc 391 Plan: - Pending MRI stroke protocol - Continue aspirin 81 mg daily, high intensity statin # Normocytic anemia Hemoglobin 11.5, hematocrit 34.6, MCV within normal limits Plan: -Management per primary team, continue to monitor with daily CBC #Sinus bradycardia EKG showed sinus bradycardia with heart rate 53, RBBB, QTc 391 Plan: - Management per primary team Plan discussed with Dr. Yg Pina, PGY1 Attending Provider Attestation/Addendum I independently reviewed the patient's record and agree with resident's findings, assessment and plan of care. Continue with current management, follow-up with MRI brain to rule out acute CVA
[2025-02-12 20:00] VITALS: BP 105/56; PULSE 45; RESP 15; TEMP 35.9; O2SAT 98
[2025-02-12] MEDS: ATORVASTATIN CALCIUM 20 MG TABLET 40 MG PO (21:55)
[2025-02-13] VITALS (9 sets, daily range): BP systolic 99–114; BP diastolic 54–62; PULSE 42–63; RESP 15–99; TEMP 36.1–36.3; O2SAT 96–99
--- NOTE | 2025-02-13 | XR_ITS ---
Examinations: MRI Brain without intravenous contrast. MRI brain with intravenous contrast MRA brain with intravenous contrast. MRA brain without intravenous contrast MRA neck with intravenous contrast Date and time of exam: February 13, 2025 1506 hours INDICATIONS: Stroke alert February 11, 2025, onset headaches facial droop Technique: Multiple axial and sagittal images of the brain have been obtained Siemens high-resolution 1.5 Kamini short bore scanner is utilized. Sagittal sections, T1-weighted, TR 500, TE 14 Axial sections proton density and T2-weighted, TR 3,000, TE 34, TR 3,000, TE 91 Inversion recovery axial images, TR 9,260, TE 111, TI 2,500 Diffusion weighted images, axial sections, TR 4,800, TE 128, B value 1,000 Axial sections, ADC map, TR 4,800, TE 128. Contrast images have been obtained post intravenous 20 cc Gadolinium. T1-weighted axial and coronal images post contrast have been obtained. Angiographic images of neck and brain are obtained pre and post contrast. 3-D post processing performed, including brain, extracranial neck arterial maximum intensity projections Findings: Sellaturcica is not enlarged. The optic chiasm and infundibular stalk are not remarkable. Prepontine and interpeduncular cisterns are not enlarged. No localized enlargement of the medulla or donna. Fourth ventricle and cerebellar tonsils normal in position. Subacute hemorrhage is not seen. Fourth ventricle is midline. Mass in the cerebellopontine angle region is not evident. 7th and 8th nerve complexes exhibits symmetry. Globes are symmetrical with no retro-orbital mass. Increased white matter signal not seen Diffusion-weighted images demonstrateno focus of restricted diffusion. Mass-effect upon the ventricular system is not identified. Abnormal contrast enhancement is noted seen. MRA brain carotid images no carotid stenoses, no cerebral large vessel arterial occlusions Impression: Negative for acute hemorrhage, mass effect or midline shift No acute infarct No MR findings diagnostic for demyelinating disease Significant ethmoid maxillary antral sinusitis Negative for significant carotid stenoses No cerebral large vessel arterial occlusions
--- NOTE | 2025-02-13 00:23 | PC.NURSE ---
Addendum entered by Rommel Berkowitz RN 02/13/25 00:34: Tylenol 650mg administered. Addendum entered by Rommel Berkowitz RN 02/13/25 00:29: Dr. Becerra made aware of patient's complaints. Dr. Becerra will add order pain management, but he also said to try the tylenol and see if it makes a difference. Original Note: Pt complaining of pain in her head. Patient describes the pain as pressure in her head. Pt has tylenol in MAR, but RN will contact hospitalists to see if he wants to give someone else.
[2025-02-13] MEDS: ACETAMINOPHEN 325 MG TABLET 650 MG PO ×3 (00:31→12:53)
[2025-02-13 06:11] LABS: Basophils # (Auto) 0.0 Thou/mm3 (0.0-0.2); Basophils % (Auto) 1 % (0-2.5); Eosinophils # (Auto) 0.3 Thou/mm3 (0.0-0.5); Eosinophils % (Auto) 5 % (0-10); Hematocrit 35.0 % (36.0-46.0); Hemoglobin 11.6 g/dL (12.0-16.0); Immature Granulocytes Auto 0.01 Thou/mm3 (0.00-0.00); Lymphocytes # (Auto) 2.0 Thou/mm3 (1.0-4.8); Lymphocytes % (Auto) 39 % (10-50); Mean Corpuscular HGB Conc 33.1 g/dl (31.0-37.0); Mean Corpuscular Hemoglobin 31.3 pg (25.0-35.0); Mean Corpuscular Volume 94 fL (80-100); Monocytes # (Auto) 1.2 Thou/mm3 (0.0-0.8); Monocytes % (Auto) 22 % (0-12); Neutrophils # (Auto) 1.8 Thou/mm3 (1.8-7.7); Neutrophils % (Auto) 33 % (37-80); Nucleated Red Blood Cell # 0.00 Thou/mm3 (0.00-0.00); Nucleated Red Blood Cell % 0 /100 WBC (0); Platelet Count 237 Thou/mm3 (140-440); RDW Standard Deviation 43.8 fL (36.4-46.3); Red Blood Count 3.71 Miln/mm3 (4.00-5.20); White Blood Count 5.3 Thou/mm3 (3.6-11.0)
[2025-02-13 06:39] LABS: Alanine Aminotransferase 60 U/L (10-49); Albumin, Serum 3.7 gm/dL (3.5-5.0); Albumin/Globulin Ratio 1.5 (1.2-2.2); Alkaline Phosphatase 89 U/L (46-116); Anion Gap 8 (7-16); Aspartate Amino Transferase 58 U/L (0-34); BUN/Creatinine Ratio 11 Ratio (12-20); Bilirubin,Total 0.2 mg/dL (0.3-1.2); Blood Urea Nitrogen 12 mg/dL (9-23); Calcium 9.0 mg/dL (8.3-10.6); Calcium (Corrected) 9.2 mg/dL (8.5-10.1); Carbon Dioxide 29.0 mMol/L (20.0-31.0); Chloride 107 mMol/L (98-107); Creatinine (Component) 1.1 mg/dL (0.6-1.3); Estimated Creatinine Clearance 70.7 mL/min (>60); Globulin 2.5 gm/dL (2.3-3.5); Glucose 94 mg/dL (74-106); Osmolality,Calculated 286 (275-295); Potassium 4.2 mMol/L (3.4-5.1); Sodium 144 mMol/L (136-145); Total Protein 6.2 gm/dL (5.7-8.2); eGFR > 60 See Note
[2025-02-13] MEDS: HEPARIN SOD INJ 5000 UNIT/ML VIAL SC ×2 (08:23→21:00)
[2025-02-13] MEDS: GABAPENTIN 100 MG CAPSULE PO ×2 (08:24→21:00)
[2025-02-13] MEDS: ASPIRIN EC 81 MG TABEC PO (08:33)
[2025-02-13 09:35] LABS: Magnesium 1.9 mg/dL (1.6-2.6)
--- NOTE | 2025-02-13 10:02 | PCS.ST ---
Very limited swallow evaluation d/t N/V. Took ice chips only. No s/s of dysphagia. Will follow up as needed when pt can tolerate meals. Continue current diet.
[2025-02-13] MEDS: KETOROLAC INJ 30 MG/ML VIAL IVP ×2 (10:54→18:23)
--- NOTE | 2025-02-13 11:22 | PD.RESPRO ---
Documentation for date of: 02/13/25 Subjective Subjective Interval history: Patient seen and examined at bedside. She confirms continued left sided headaches that she states are intermittent in nature, 8/10 pressure like pain with associated left facial, left arm, and left leg numbness. She also endorses a new symptom of tingling/stabbing pain in the left leg originating at the level of the greater trochanter down to her toes encompassing the entirety of the leg in a nondermatomal distribution which she states accompanies her headaches. She also mentions epigastric crampy pain that is intermittent, with no provoking and alleviating factors. She denies chest pain, fevers, dysuria, constipation. Exam Vital Signs Temp Pulse Resp BP Pulse Ox O2 Del Method 97 F 43 L 17 108/56 L 96 Room Air 02/13/25 08:00 02/13/25 08:00 02/13/25 08:00 02/13/25 08:00 02/13/25 08:00 02/13/25 08:00 Narrative Exam General: Patient is A&O x4, NAD, pleasant conversant HEENT: Normocephalic, atraumatic, PERRL, EOMI Cardio: Normal S1, S2, no rubs murmurs or gallops Pulm: Lungs clear to auscultation bilaterally, with no adventitious breath sounds. Abdominal: Bowel sounds present in all quadrants, abdomen is soft and nontender with no guarding or rigidity. MSK: Strength is 5/5 in bilateral upper and lower extremities. Neuro: Decreased sensation in left upper and lower extremity II: Vision is currently at baseline III, IV, : EOMI, no nystagmus, V: Asymmetric sensation in V1, V2 and V3 distribution to crude touch (reduced sensation of left side). Jaw strength normal. VII: No facial asymmetry, able to smile symmetrically and BL good eye closure. VIII: Hearing intact in both ears per finger rubbing. IX, X: Symmetrical palate elevation, uvula in midline. XI: Symmetrical head rotation and shoulder shrug. IX, XII: Midline tongue protrusion. No fasciculations or atrophy noted. Objective Labs 02/13/25 04:50 02/13/25 04:50 Labs: Laboratory Results - last 24 hr 02/12/25 02/13/25 04:42 04:50 WBC 5.3 RBC 3.71 L Hgb 11.6 L Hct 35.0 L MCV 94 MCH 31.3 MCHC 33.1 RDW Std Deviation 43.8 Plt Count 237 Neut % (Auto) 33 L Lymph % (Auto) 39 [place] % (Auto) 22 H Eos % (Auto) 5 Baso % (Auto) 1 Neut # (Auto) 1.8 Lymph # (Auto) 2.0 [place] # (Auto) 1.2 H Eos # (Auto) 0.3 Baso # (Auto) 0.0 Immature Gran # (Auto) 0.01 H Absolute Nucleated RBC 0.00 Immature Gran % 0 Nucleated RBC % 0 ESR 12 Sodium 144 Potassium 4.2 Chloride 107 Carbon Dioxide 29.0 Anion Gap 8 BUN 12 Creatinine 1.1 Estim Creat Clear Calc 70.7 eGFR > 60 BUN/Creatinine Ratio 11 L Glucose 94 Calculated Osmolality 286 Calcium 9.0 Corrected Calcium 9.2 Magnesium 1.9 Total Bilirubin 0.2 L AST 58 H ALT 60 H Alkaline Phosphatase 89 C-Reactive Prot, Quant 1.0 H Total Protein 6.2 Albumin 3.7 Globulin 2.5 Albumin/Globulin Ratio 1.5 Quality Measures Quality Measures none Assessment & Plan Assessment Current Active Medications: Generic Name Dose Route Start Last Admin Trade Name Freq PRN Reason Stop Dose Admin Acetaminophen 650 mg 02/13/25 09:07 Acetaminophen 325 Mg Tablet PO 03/14/25 12:51 Q4HR PRN Fever >101, pain (1-3) Aspirin 81 mg 02/13/25 09:00 02/13/25 08:33 Aspirin Ec 81 Mg Tabec PO 03/15/25 08:59 81 mg QDAY LESLIE Administration Atorvastatin Calcium 40 mg 02/12/25 21:00 02/12/25 21:55 Atorvastatin Calcium 20 Mg Tablet PO 03/14/25 20:59 40 mg HS LESLIE Administration Gabapentin 100 mg 02/12/25 13:00 02/13/25 08:24 Gabapentin 100 Mg Capsule PO 03/14/25 12:59 100 mg BID LESLIE Administration Heparin Sodium (Porcine) 5,000 unit 02/12/25 01:03 02/13/25 08:23 Heparin Sod Inj 5000 Unit/Ml Vial SC 02/26/25 01:02 5,000 unit Q12HR LESLIE Administration Hydralazine HCl 10 mg 02/12/25 10:23 Hydralazine Inj 20 Mg/Ml Vial IVP 03/14/25 10:22 Q6H PRN Systolic >220/120 and HR <80 Ketorolac Tromethamine 30 mg 02/13/25 00:30 02/13/25 10:54 Ketorolac Inj 30 Mg/Ml Vial IVP 02/18/25 00:29 30 mg Q6HR PRN Administration PAIN SCALE 4-6 (Moderate Lorazepam 0.5 mg 02/12/25 12:55 Lorazepam 0.5 Mg Tablet PO 02/17/25 12:54 X1 PRN Before MRI for anxiety Ondansetron HCl 4 mg 02/11/25 20:58 Ondansetron Inj 2 Mg/Ml Inj 2 Ml IVP 03/13/25 20:57 Q4HR PRN NAUSEA OR VOMITING Sennosides 1 tab 02/11/25 23:04 Senna Tablet PO 03/13/25 23:03 QDAY PRN constipation Protocol Plan Assessment and Plan Linda Damian is a 44-year-old F with no PMH who presented with stroke-like symptoms. Patient was admitted for the work-up and management of stroke-like symptoms and headache. #Stroke (Ruled Out) #?Complex migraine Differential Dx: complex migraine, stress induced Patient endorses hx of migraines, and confirms acute stressors in her life recently Per tele-neurology, patient's NIHSS Score was 2, NIHSS Free Text was left facial numbness, mild lower facial asymmetry , and Pre-Morbid Modified [place] Scale was 0. Head CT was negative for acute hemorrhage, mass effect or midline shift. Head/neck CTA was negative for significant neck arterial stenoses or cerebral abscess or arterial occlusions. Patients facial asymmetry seems resolved, left facial sensation and left upper extremity is diminished but present. MRI with MRA is negative for acute hemorrhage, mass effect, midline shift, no acute infarct, negative for carotid stenosis, and no findings diagnostic for demyelinating disease. TTE: negative for PFO/ASD. LVEF 55-60% Coagulation panel/TSH/Mag/Phos wnl, Lipid panel reveals dyslipidemia Mag and phos wnl Plan -Appreciate Tele-Neurology recs -Appreciate Neurology recs -Neuro Check (Q4) -IV Fluids, Normal Saline -Head of Bed 30 Degrees -Euglycemia and Avoid Hyperthermia (PRN Acetaminophen) -Aspirin 81mg -Antihypertensives PRN if Blood pressure is greater than 220/120 or there is a concern for End organ damage/contraindications for permissive HTN. If blood pressure is greater than 220/120 give labetalol PO or IV or Vasotec IV with a goal of 15% reduction in BP during the first 24 hours. -po atorvastatin 40 mg qHS -DVT Prophylaxis with heparin -Manage pain with Acetaminophen 650 mg po Q4, Gabapenin 100mg BID, ketorolac 30mg prn -MRI negative, pending further recommendation from neurology #Asymptomatic bradycardia #Hypotension BP has been on the softer side, and she has asymptomatic bradycardia for which cardiology was consulted. Echo showed EF 55-60%, negative bubble study, and grade 1 diastolic dysfunction. Evidently, HR recovered with ambulation with cardiology. Although she does have an extensive history of NC in family, cousin who of an NC at 43, and dad of an NC at young age. Cardiology recommended outpatient workup for ischemic cardiomyopathy. ? continue monitoring #Asymptomatic bacteriuria Patient has 12 wbc, positive leukocyte esterase, 6 squamous epithelial cells and >100,000 cfu mixed starr Possible contamination per culture report and presence of squamous epithelial cells on UA Patient is asymptomatic Plan -Monitor for infection -PCP fu with repeat UA recommended # Normocytic anemia Hemoglobin 11.5, hematocrit 34.6, MCV within normal limits Plan: -Continue to trend CBC Hospital Management Disposition: Medsurg Diet: Normal Diet Lines: none DVT Prophylaxis: Heparin Q12 CODE STATUS: Full Code Case and Plan discussed with my attending physician, Dr. Lynn, and my senior resident, Dr. Kimberley Hebert, [facility] Attending Provider Attestation/Addendum I have examined the patient, reviewed labs and imaging findings, discussed the case with the resident(s), and reviewed entered orders. I agree with the plan of care as outlined in this note, with these additional summaries/recommendations: Patient seen at bedside. No acute overnight events. Today patient endorses worsening left-sided paresthesias in face, LUE, LLL. She is pending MRI brain to rule out acute CVA. Etiology for symptoms acute CVA versus complex migraine versus least likely demyelinating disease. She does endorse significant life stressors and is currently going through a divorce. She still endorses headache although slightly improved. CT head without contrast negative for acute hemorrhage, mass effect or midline shift. CTA negative for LVO and significant stenosis. Continue aspirin and atorvastatin 40 mg p.o. at bedtime. MRI brain pending. Echocardiogram showed negative bubble study and appropriate ejection fraction. In-house neurology consulted, recommendations appreciated. Etiology likely complex migraine versus acute CVA. Pending physical therapy. Dr. Shane MD
--- NOTE | 2025-02-13 12:04 | PC.SS ---
rounding note: Patient still pending one AFB result. R/o TB.
--- NOTE | 2025-02-13 12:07 | PC.SS ---
Patient is pending MRI. Pt eval.
--- NOTE | 2025-02-13 13:38 | PD.RESPRO ---
Documentation for date of: 02/13/25 Subjective Subjective Interval history: Patient seen at bedside. Reports left-sided numbness of both upper and lower extremities that has been stable since admission. Denies new symptoms. Exam Vital Signs Temp Pulse Resp BP Pulse Ox O2 Del Method 97 F 44 L 16 106/60 97 Room Air 02/13/25 12:00 02/13/25 12:00 02/13/25 12:00 02/13/25 12:00 02/13/25 12:00 02/13/25 12:00 Narrative Exam General: No acute distress, well nourished Eye: PERRL, EOMI, normal conjunctiva, no scleral icterus HENT: Normocephalic, atraumatic, hearing intact to conversation at normal volume, moist oral mucosa Neck: Supple, non-tender, no JVD, no lymphadenopathy Lungs: Non-labored respirations, symmetric chest rise Heart: Peripheral pulses intact bilaterally Abdomen: Soft, non-tender, non-distended Musculoskeletal: Normal range of motion and strength Skin: Skin is warm, dry, no rashes or lesions. Psychiatric: Cooperative, appropriate mood and affect Neurologic: Mental status: Orientation: Oriented to person, place, time, and situation Communication: Patient is cooperative and can follow simple instructions Language: Speech fluent, normal rate and volume, comprehension intact Cranial nerves: CN II: Visual loera intact CN III: Pupils equal, round, and reactive to light CN III, IV, : No gaze deviation, no nystagmus Horizontal pursuit: intact Vertical pursuit: intact Ptosis: none CN V: Facial sensation to light touch intact but decreased on left side at the forehead, cheeks, and jaw line. No deficit on right side CN VII: Lower left facial droop appreciated on smile CN VIII: Able to hear and respond to conversation at normal volume, intact to finger rub CN IX, X: Palate elevation symmetric, uvula midline CN XI: Head turn and shoulder shrug strong, symmetric bilaterally CN XII: Normal tongue protrusion without deviation, no fasciculations Motor: Normal bulk and tone No atrophy No abnormal movements or fasciculations Muscle strength: Shoulder abduction: R 5/5 L 5/5 Elbow flexion: R 5/5 L 5/5 Elbow extension: R 5/5 L 5/5 Hip flexion: R 5/5 L 5/5 Hip extension: R 5/5 L 5/5 Knee flexion: R 5/5 L 5/5 Knee extension: R 5/5 L 5/5 Sensory: Decreased left sided sensation to light touch. Right side intact to light touch Cerebellar: Finger to nose and alternating movements intact and symmetric in b/l upper extremities Gait: Patient able to stand and walk without support Objective Labs 02/14/25 04:48 02/14/25 04:48 Labs: Laboratory Results - last 24 hr 02/13/25 04:50 WBC 5.3 RBC 3.71 L Hgb 11.6 L Hct 35.0 L MCV 94 MCH 31.3 MCHC 33.1 RDW Std Deviation 43.8 Plt Count 237 Neut % (Auto) 33 L Lymph % (Auto) 39 [place] % (Auto) 22 H Eos % (Auto) 5 Baso % (Auto) 1 Neut # (Auto) 1.8 Lymph # (Auto) 2.0 [place] # (Auto) 1.2 H Eos # (Auto) 0.3 Baso # (Auto) 0.0 Immature Gran # (Auto) 0.01 H Absolute Nucleated RBC 0.00 Immature Gran % 0 Nucleated RBC % 0 Sodium 144 Potassium 4.2 Chloride 107 Carbon Dioxide 29.0 Anion Gap 8 BUN 12 Creatinine 1.1 Estim Creat Clear Calc 70.7 eGFR > 60 BUN/Creatinine Ratio 11 L Glucose 94 Calculated Osmolality 286 Calcium 9.0 Corrected Calcium 9.2 Magnesium 1.9 Total Bilirubin 0.2 L AST 58 H ALT 60 H Alkaline Phosphatase 89 Total Protein 6.2 Albumin 3.7 Globulin 2.5 Albumin/Globulin Ratio 1.5 Quality Measures Quality Measures none Assessment & Plan Assessment Current Active Medications: Generic Name Dose Route Start Last Admin Trade Name Abiel PRN Reason Stop Dose Admin Acetaminophen 650 mg 02/13/25 09:07 02/13/25 12:53 Acetaminophen 325 Mg Tablet PO 03/14/25 12:51 650 mg Q4HR PRN Administration Fever >101, pain (1-3) Aspirin 81 mg 02/13/25 09:00 02/13/25 08:33 Aspirin Ec 81 Mg Tabec PO 03/15/25 08:59 81 mg QDAY LESLIE Administration Atorvastatin Calcium 40 mg 02/12/25 21:00 02/12/25 21:55 Atorvastatin Calcium 20 Mg Tablet PO 03/14/25 20:59 40 mg HS LESLIE Administration Gabapentin 100 mg 02/12/25 13:00 02/13/25 08:24 Gabapentin 100 Mg Capsule PO 03/14/25 12:59 100 mg BID LESLIE Administration Heparin Sodium (Porcine) 5,000 unit 02/12/25 01:03 02/13/25 08:23 Heparin Sod Inj 5000 Unit/Ml Vial SC 02/26/25 01:02 5,000 unit Q12HR LESLIE Administration Hydralazine HCl 10 mg 02/12/25 10:23 Hydralazine Inj 20 Mg/Ml Vial IVP 03/14/25 10:22 Q6H PRN Systolic >220/120 and HR <80 Ketorolac Tromethamine 30 mg 02/13/25 00:30 02/13/25 10:54 Ketorolac Inj 30 Mg/Ml Vial IVP 02/18/25 00:29 30 mg Q6HR PRN Administration PAIN SCALE 4-6 (Moderate Lorazepam 0.5 mg 02/12/25 12:55 Lorazepam 0.5 Mg Tablet PO 02/17/25 12:54 X1 PRN Before MRI for anxiety Ondansetron HCl 4 mg 02/11/25 20:58 Ondansetron Inj 2 Mg/Ml Inj 2 Ml IVP 03/13/25 20:57 Q4HR PRN NAUSEA OR VOMITING Sennosides 1 tab 02/11/25 23:04 Senna Tablet PO 03/13/25 23:03 QDAY PRN constipation Protocol Plan # Left upper extremity weakness, resolved # Left sided numbness in upper and lower extremities # Left-sided lower facial droop # Hyperlipidemia Patient initially presented with headache, nausea, left arm numbness and weakness, left face weakness with facial droop, facial twitch, chest pain, left blurry vision. Initial NIHSS 2 Patient has a smoking history of half pack per day for [address] head without contrast negative for acute hemorrhage, midline shift, mass effect. CTA head/neck negative for LVO. MRI stroke protocol: Negative for acute hemorrhage, mass effect or midline shift. No acute infarct. No MR findings diagnostic for demyelinating disease. Significant ethmoid maxillary antral sinusitis. Negative for significant carotid stenoses. No cerebral large vessel arterial occlusions A1c 5.1 Triglycerides WNL, cholesterol high 227, LDL high 164, HDL low 34. TSH WNL. UDS positive for opiates (pt given [place] and morphine in ED). hCG negative. CRP high 1 EKG showed sinus bradycardia with heart rate 53, RBBB, QTc 391 TTE: negative for PFO/ASD. LVEF 55-60% DDX: TIA vs complex migraine Plan: - Continue aspirin 81 mg daily, high intensity statin - Patient clear for discharge from neurological standpoint # Normocytic anemia Hgb, HCT stable Plan: -Management per primary team #Sinus bradycardia EKG showed sinus bradycardia with heart rate 53, RBBB, QTc 391 Plan: - Management per primary team Plan discussed with Dr. Yg Pina, PGY1 Attending Provider Attestation/Addendum I personally have seen and examined the patient at the bedside and I agreed with the resident's findings, assessment and plan of care. Reassurance given to the patient regarding the MRI findings. Her symptoms are nonneurological, stable for discharge no focal deficit noted.
--- NOTE | 2025-02-13 14:23 | PC.NURSE ---
PATIENT heartrate rund 49 50 she is bradycardia called doctor saida and let desiree know about heartrate.he said yesterday doc serenity saw him they are aware of low hear rate.no new order received.pt has no any sign and symptoms no chest pain no shortness of breath.
--- NOTE | 2025-02-13 15:21 | ESPR_ITS ---
<Statement entered by Luana Webb MD - 02/16/25 14:39> I personally examined evaluated the patient with the resident physician Dr. Chapman PGY 2 agree with the treatment plan examination patient has had asymptomatic bradycardia chest pain appears to be noncardiac in nature recommended to see primary care physician following discharge Documentation for date of: 02/13/25 Subjective Subjective Interval history: Pt is seen at bedside, currently resting comfortably in bed, saturating on room air. Pt continues to be in sinus bradycardia due to increase vagal tone and remains asymptomatic, with HR between 45-52 and BP 108/56. MRI is negative. Recommend patient undergoes outpatient work up with junior high math teacher including cardiac stress test. On ambulation pt's HR improves to 60's. Pt does not have any cardiac symptoms. labs are reviewed and are largely unremarkable with the exception of AST 58 and ALT 60 Cardiology team will sign out Exam Vital Signs Temp Pulse Resp BP Pulse Ox O2 Del Method 97 F 44 L 16 106/60 97 Room Air 02/13/25 12:00 02/13/25 12:00 02/13/25 12:00 02/13/25 12:00 02/13/25 12:00 02/13/25 12:00 Narrative Exam GENERAL: A&Ox3 . Awake, Not in acute distress NEURO: no focal neurological deficits noted HEENT: Atraumatic, Normocephalic. mucous membranes moist. Eyes open, symmetrical, & clear HEART: Normal Heart Sounds LUNGS: Clear to auscultation with no wheezing or crackles. ABDOMEN: soft, non-distended, non-tender, bowel sounds heard, no guarding or rebound tenderness SKIN: No Rash or ecchymoses EXTREMITIES: No edema, tenderness, able to move all 4 extremities, pedal pulses palpated Objective Labs 02/13/25 04:50 02/13/25 04:50 Labs: Laboratory Results - last 24 hr 02/13/25 04:50 WBC 5.3 RBC 3.71 L Hgb 11.6 L Hct 35.0 L MCV 94 MCH 31.3 MCHC 33.1 RDW Std Deviation 43.8 Plt Count 237 Neut % (Auto) 33 L Lymph % (Auto) 39 [place] % (Auto) 22 H Eos % (Auto) 5 Baso % (Auto) 1 Neut # (Auto) 1.8 Lymph # (Auto) 2.0 [place] # (Auto) 1.2 H Eos # (Auto) 0.3 Baso # (Auto) 0.0 Immature Gran # (Auto) 0.01 H Absolute Nucleated RBC 0.00 Immature Gran % 0 Nucleated RBC % 0 Sodium 144 Potassium 4.2 Chloride 107 Carbon Dioxide 29.0 Anion Gap 8 BUN 12 Creatinine 1.1 Estim Creat Clear Calc 70.7 eGFR > 60 BUN/Creatinine Ratio 11 L Glucose 94 Calculated Osmolality 286 Calcium 9.0 Corrected Calcium 9.2 Magnesium 1.9 Total Bilirubin 0.2 L AST 58 H ALT 60 H Alkaline Phosphatase 89 Total Protein 6.2 Albumin 3.7 Globulin 2.5 Albumin/Globulin Ratio 1.5 Quality Measures Quality Measures none Assessment & Plan Assessment Current Active Medications: Generic Name Dose Route Start Last Admin Trade Name Freq PRN Reason Stop Dose Admin Acetaminophen 650 mg 02/13/25 09:07 02/13/25 12:53 Acetaminophen 325 Mg Tablet PO 03/14/25 12:51 650 mg Q4HR PRN Administration Fever >101, pain (1-3) Aspirin 81 mg 02/13/25 09:00 02/13/25 08:33 Aspirin Ec 81 Mg Tabec PO 03/15/25 08:59 81 mg QDAY LESLIE Administration Atorvastatin Calcium 40 mg 02/12/25 21:00 02/12/25 21:55 Atorvastatin Calcium 20 Mg Tablet PO 03/14/25 20:59 40 mg HS LESLIE Administration Gabapentin 100 mg 02/12/25 13:00 02/13/25 08:24 Gabapentin 100 Mg Capsule PO 03/14/25 12:59 100 mg BID LESLIE Administration Heparin Sodium (Porcine) 5,000 unit 02/12/25 01:03 02/13/25 08:23 Heparin Sod Inj 5000 Unit/Ml Vial SC 02/26/25 01:02 5,000 unit Q12HR LESLIE Administration Hydralazine HCl 10 mg 02/12/25 10:23 Hydralazine Inj 20 Mg/Ml Vial IVP 03/14/25 10:22 Q6H PRN Systolic >220/120 and HR <80 Ketorolac Tromethamine 30 mg 02/13/25 00:30 02/13/25 10:54 Ketorolac Inj 30 Mg/Ml Vial IVP 02/18/25 00:29 30 mg Q6HR PRN Administration PAIN SCALE 4-6 (Moderate Lorazepam 0.5 mg 02/12/25 12:55 02/13/25 15:03 Lorazepam 0.5 Mg Tablet PO 02/17/25 12:54 0.5 mg X1 PRN Administration Before MRI for anxiety Ondansetron HCl 4 mg 02/11/25 20:58 Ondansetron Inj 2 Mg/Ml Inj 2 Ml IVP 03/13/25 20:57 Q4HR PRN NAUSEA OR VOMITING Sennosides 1 tab 02/11/25 23:04 Senna Tablet PO 03/13/25 23:03 QDAY PRN constipation Protocol Plan Ms. Damian is a 44-year-old F with no PMH presented to the ED on 02/11 complaining of severe left-sided headache accompanied with left-sided facial numbness and drooping. Patient is admitted to the hospital for stroke workup. Cardiology is consulted due to bradycardia #Asymptomatic bradycardia due to #Increased vagal tone #Atypical chest pain- resolved - Patient describes intermittent history of left-sided chest pain radiating to left arm lasting approximately 5 to 10 minutes. During the chest pain patient also complains of palpitations and dizziness. - EKG shows sinus bradycardia with a rate of 53 and QTc 391 Echo done on 02/12/2025: Bubble study negative for PFO and ASD. Normal LV size and wall thickness. Estimated EF at 55-60%. Grade I diastolic dysfunction. Normal RV size and function. The estimated RVSP, 36 mmHg. RAP 15. Mild MR. Trace TR. IVC dilated and in the collapses less than 50% on inspiration. Plan: - On ambulation patient's heart rate improved to 60s, patient continues to be asymptomatic, denies any dizziness - Patient's bradycardia is asymptomatic therefore will not need a pacemaker at this time -Patient's description of the chest pain is likely atypical chest pain triggered by exertional or emotional stress including anxiety. The pain goes away without intervention - Due to patient's family history of cousin having SC at a young age patient will need outpatient workup and referral to junior high math teacher #Acute CVA ruled out -CT of head and CTA of head/neck are negative -MRI is pnegative Management as per neurology and primary team Thank you for the consult and allowing us to participate in the care of the patient. Cardiology will sign out Assessment and plan discussed with my attending [place] Dr. Jon Chapman (PGY-2)- Internal medicine resident
[2025-02-13] MEDS: ATORVASTATIN CALCIUM 20 MG TABLET 40 MG PO (21:00)
[2025-02-14] VITALS: BP 104/65; PULSE 50; PULSE 65; RESP 17; TEMP 36.1; O2SAT 99
[2025-02-14] MEDS: KETOROLAC INJ 30 MG/ML VIAL IVP ×2 (00:26→09:16)
[2025-02-14 04:00] VITALS: BP 110/60; PULSE 46; PULSE 50; RESP 17; TEMP 36.4; O2SAT 96
[2025-02-14 06:26] LABS: Basophils # (Auto) 0.0 Thou/mm3 (0.0-0.2); Basophils % (Auto) 1 % (0-2.5); Eosinophils # (Auto) 0.3 Thou/mm3 (0.0-0.5); Eosinophils % (Auto) 5 % (0-10); Hematocrit 33.7 % (36.0-46.0); Hemoglobin 11.3 g/dL (12.0-16.0); Immature Granulocytes Auto 0.01 Thou/mm3 (0.00-0.00); Lymphocytes # (Auto) 2.4 Thou/mm3 (1.0-4.8); Lymphocytes % (Auto) 48 % (10-50); Mean Corpuscular HGB Conc 33.5 g/dl (31.0-37.0); Mean Corpuscular Hemoglobin 31.0 pg (25.0-35.0); Mean Corpuscular Volume 93 fL (80-100); Monocytes # (Auto) 0.8 Thou/mm3 (0.0-0.8); Monocytes % (Auto) 16 % (0-12); Neutrophils # (Auto) 1.5 Thou/mm3 (1.8-7.7); Neutrophils % (Auto) 31 % (37-80); Nucleated Red Blood Cell # 0.00 Thou/mm3 (0.00-0.00); Nucleated Red Blood Cell % 0 /100 WBC (0); Platelet Count 223 Thou/mm3 (140-440); RDW Standard Deviation 43.0 fL (36.4-46.3); Red Blood Count 3.64 Miln/mm3 (4.00-5.20); White Blood Count 5.0 Thou/mm3 (3.6-11.0)
[2025-02-14 06:40] LABS: Alanine Aminotransferase 65 U/L (10-49); Albumin, Serum 3.6 gm/dL (3.5-5.0); Albumin/Globulin Ratio 1.4 (1.2-2.2); Alkaline Phosphatase 89 U/L (46-116); Anion Gap 10 (7-16); Aspartate Amino Transferase 47 U/L (0-34); BUN/Creatinine Ratio 13 Ratio (12-20); Bilirubin,Total 0.2 mg/dL (0.3-1.2); Blood Urea Nitrogen 12 mg/dL (9-23); Calcium 9.0 mg/dL (8.3-10.6); Calcium (Corrected) 9.3 mg/dL (8.5-10.1); Carbon Dioxide 28.4 mMol/L (20.0-31.0); Chloride 108 mMol/L (98-107); Creatinine (Component) 0.9 mg/dL (0.6-1.3); Estimated Creatinine Clearance 86.5 mL/min (>60); Globulin 2.5 gm/dL (2.3-3.5); Glucose 99 mg/dL (74-106); Magnesium 1.5 mg/dL (1.6-2.6); Osmolality,Calculated 290 (275-295); Phosphorous 3.7 mg/dL (2.4-5.1); Potassium 4.2 mMol/L (3.4-5.1); Sodium 146 mMol/L (136-145); Total Protein 6.1 gm/dL (5.7-8.2); eGFR > 60 See Note
[2025-02-14 07:55] VITALS: BP 112/82; PULSE 54; RESP 18; TEMP 36.7; O2SAT 94
[2025-02-14 08:00] VITALS: PULSE 45
[2025-02-14] MEDS: Magnesium Sulfate 4 GM Ivpb 4 GM/50 ML BAG IV (08:51)
[2025-02-14] MEDS: HEPARIN SOD INJ 5000 UNIT/ML VIAL SC (08:52)
[2025-02-14] MEDS: ASPIRIN EC 81 MG TABEC PO (08:52)
[2025-02-14] MEDS: GABAPENTIN 100 MG CAPSULE PO (08:52)
--- NOTE | 2025-02-14 10:18 | PC.SS ---
Follow up note: SS spoke to PT and patient was independent and does not have any needs. Dc pending home
[2025-02-14 12:00] VITALS: BP 127/63; PULSE 55; RESP 17; TEMP 36.4; O2SAT 95
--- NOTE | 2025-02-14 13:21 | ESDS_ITS ---
<Statement entered by Nano Yoon DO - 02/15/25 12:16> I, Nano Yoon DO, attest that I was physically present for the lee portions of the service and evaluated the patient with the resident and I reviewed and discussed the case with the resident and agree with the resident's findings and plans of care as documented above <Statement entered by Laurel Alegria MD - 02/14/25 19:59> I have reviewed the note and agree with the resident's assessment & plan with exceptions as below. I have personally reviewed labs, imaging, home meds/prior records, examined the patient, formulated and discussed management plan with the IM team. Patient was discharged after being cleared from physical therapy, speech therapy, brain MRI was negative for acute hemorrhage mass effect or stroke. However the MRI did show some sinusitis which we are addressing with patient and giving Flonase and azolastine nasal spray with recommendations to follow-up with ENT as well. Patient to continue high intensity statin and aspirin. Neurology cleared patient for discharge as well in addition to statin and aspirin recommendations. Patient is to follow discharge instructions listed in her discharge paperwork. Patient is also to continue follow-up with her asymptomatic bradycardia with her PCP. Patient could have experienced a TIA, however stroke was ruled out. Laurel Alegria, PGY-2 Internal Medicine Planned Discharge Date 02/14/25 DS: Providers Provider Date of admission: 02/11/25 23:04 Primary care physician: Lalo Quintanilla MD Admitting Provider: William Ewing DO Attending Provider on Admission: Jose Manuel Lynn MD Consults: 02/11/25 20:58 Consult to Neurology / Tele-Neurology Routine Comment: Consulting Provider: [facility] 02/12/25 00:39 Consult to Neurology / Tele-Neurology Routine Comment: Stroke r/o Consulting Provider: Eleazar Ronquillo 02/12/25 02:09 Referral Physical Therapy Routine Comment: Physician Instructions: Instructions: evaluation, cva workup 02/12/25 08:30 Referral - POLITICAL [employer]IDE [employer]ures Technician Routine Comment: swallow mauricio Mak 02/12/25 10:25 Consult to Cardiology Routine Comment: Bradycardia AND hypotension Consulting Provider: Luana Webb Attending Provider on DC: Nano Yoon DO Discharging Provider: Nano Yoon DO Anticipated date of discharge: 02/14/25 DS: Diagnosis Problem List Completed Was Problem List Reviewed/Reconciled?: Yes Hospital Course Hospital Course Hospital course: Linda Damian is a 44-year-old F with no PMH who presented with stroke-like symptoms. Patient was admitted for the work-up and management of stroke-like symptoms and headache. ED Course: In the ED vitals showed BP 106/70 HR 70 RR 18 Temp 98.5 SpO2 98% on room air. Physical exam was notable for mild facial droop to the left side of the mouth only, and mild left-sided sensory deficit noted to the forehead, cheek, mandible. CBC, CMP, coagulation panel, and HCG were wnl. UA showed positive leukocyte esterase, 17 RBC, 12 WBC, 6 squamous epithelial cells, and positive urine opiate screen (pt given norco and morphine in ED). Imaging: EKG: Sinus Bradycardia CT Head: Negative for acute hemorrhage, mass effect or midline shift Head/Neck CTA: No significant neck arterial stenoses, No cerebral abscess or arterial occlusions. Hospital Course: Patient was admitted for stroke rule out. Patient was evaluated by tele-neurology and her NIHSS score was 2 and she was placed on Q4 neuro checks. Neurology was consulted and the patient was placed on Asa 81mg, atorvastatin 40 mg, and pain management. Neuro exams remained nonfocal aside from diminished sensation on left face, upper and lower extremity. Brain MRI with MRA came back negative and stroke was ruled out. MRI did note sinusitis. She was also noted to have asymptomatic bradycardia and hypotension and cardiology was brought on board. An echo was done which was negative for pfo and ASD, and as patient is stable and asymptomatic, cardiology recommends outpatient cardiology follow up for family history of [place] at young age. Additionally, the patient was noted to have asymptomatic bacteriuria on UA and urine culture, but the report indicated likely contamination and as patient is asymptomatic we recommend PCP fu to repeat UA. Lastly, the patient was noted to have normocytic anemia which was stable throughout her stay. Imaging: Echo: Bubble study negative for PFO and ASD, Estimated EF at 55-60%. Grade I diastolic dysfunction, Mild MR, Trace TR. Brain MRI with MRA: Negative for acute hemorrhage, acute infarct, and no findings diagnostic for demyelinating disease. Significant ethmoid maxillary antral sinusitis. Consults: Neurology, Cardiology Discharge Instructions * Follow-up with PCP within 1-2 weeks of discharge. * Follow-up with neurology within 1-2 weeks of discharge. * Continue using FLONASE and/or AZOLASTINE nasal spray as needed for seasonal allergies, runny nose and nasal congestions. * Recommended follow-up with ENT for sinusitis and allergies if symptoms persist. * Continue taking medications as prescribed below. * Return to Emergency Room if symptoms persist, worsen, or new symptoms develop. Problem List #Stroke (Ruled Out) #Asymptomatic bradycardia due to #Increased vagal tone #Hypotension #Asymptomatic bacteriuria # Normocytic anemia #Sinusitis (chronic) Case and Plan discussed with my attending physician, Dr. Yoon, and my senior resident, Dr. Raji Hebert, [facility] – [place]- Time Spent with Patient Time attestation: Total time spent providing and/or coordinating discharge services: Time spent: Greater than 30 minutes Exam Vital Signs Temp Pulse Resp BP Pulse Ox O2 Del Method 97.6 F 55 L 17 127/63 95 Room Air 02/14/25 12:02/14/25 12:02/14/25 12:02/14/25 12:02/14/25 12:02/14/25 12:00 Narrative Exam General: Patient is A&O x4, NAD, conversant HEENT: Normocephalic, atraumatic, PERRL, EOMI Cardio: Normal S1, S2, no rubs murmurs or gallops Pulm: Lungs clear to auscultation bilaterally, with no adventitious breath sounds. Abdominal: Bowel sounds present in all quadrants, abdomen is soft and nontender with no guarding or rigidity. MSK: Strength is 5/5 in bilateral upper and lower extremities. Neuro: Decreased sensation in left upper and lower extremity II: Vision is currently at baseline III, IV, : EOMI, no nystagmus, V: Asymmetric sensation in V1, V2 and V3 distribution to crude touch (reduced sensation of left side). Jaw strength normal. VII: No facial asymmetry, able to smile symmetrically and BL good eye closure. VIII: Hearing intact in both ears per finger rubbing. IX, X: Symmetrical palate elevation, uvula in midline. XI: Symmetrical head rotation and shoulder shrug. IX, XII: Midline tongue protrusion. No fasciculations or atrophy noted. Discharge Plan Plan Patient Disposition: HOME (Self Care) Care Plan Goals: * Follow-up with PCP within 1-2 weeks of discharge. * Follow-up with neurology within 1-2 weeks of discharge. * Continue using FLONASE and/or AZOLASTINE nasal spray as needed for seasonal allergies, runny nose and nasal congestions. * Recommended follow-up with ENT for sinusitis and allergies if symptoms persist. * Continue taking medications as prescribed below. * Return to Emergency Room if symptoms persist, worsen, or new symptoms develop. Prescriptions/Referrals Prescriptions/Med Rec: New azelastine 137 mcg (0.1 %) spray,non-aerosol 1 spray intranasal BID PRN (Reason: nasal congestion) 30 Days Qty: 30 0RF Rx Instructions: administer into each nostril fluticasone propionate [Flonase Allergy Relief] 50 mcg/actuation spray,suspension 1 spray intranasal BID PRN (Reason: nasal congestion) 30 Days Qty: 16 0RF Rx Instructions: administer into each nostril twice a day as needed aspirin 81 mg capsule 81 mg PO QDAY 30 Days Qty: 30 0RF Rx Instructions: Take one tablet by mouth every day atorvastatin 40 mg tablet 40 mg PO QPM 30 Days Qty: 30 1RF Rx Instructions: Take one tablet by mouth at night Referrals: Lalo Quintanilla MD [Primary Care Provider] - Patient/Caregiver Discharge Instructions Print Language: Citizen Of [place] Stand Alone Forms: Melita Award Info., Patient Portal Info Letter Discharge Order Discharge Orders: Discharge (Routine); Ordered 02/14/25 Ordered By: Nancy Chu Quality Discharge Quality Measures VTE prophylaxis (Heparin )
== END 2025-02-14 12:15 | disposition home or self-care (01) | DRG 201 ==
LOC: SERX 22:21 → SERHOLD 23:21 → S3SX 02-12 00:03 → S2NX 02-12 00:58 → S3NX 02-12 21:22
PROVIDERS: Nurse Practitioner Family; Admitting Provider Student in an Organized Health Care Education/Training Program; Emergency Provider Emergency Medicine; PCP Family Medicine; Visit Provider Student in an Organized Health Care Education/Training Program
DX: R00.1 Bradycardia, unspecified (principal); R25.3 Fasciculation; R20.0 Anesthesia of skin; R07.89 Other chest pain; R29.810 Facial weakness; I45.10 Unspecified right bundle-branch block; G44.85 Primary stabbing headache; F41.9 Anxiety disorder, unspecified; E78.5 Hyperlipidemia, unspecified; R53.1 Weakness; D64.89 Other specified anemias; G43.909 Migraine, unspecified, not intractable, without status migrainosus; Z63.5 Disruption of family by separation and divorce; G37.9 Demyelinating disease of central nervous system, unspecified; I95.9 Hypotension, unspecified; Z87.891 Personal history of nicotine dependence; J32.0 Chronic maxillary sinusitis; Z79.82 Long term (current) use of aspirin; Z79.899 Other long term (current) drug therapy; Z85.42 Personal history of malignant neoplasm of other parts of uterus; Z90.710 Acquired absence of both cervix and uterus
CPT/HCPCS: 36415; 70450; 70496; 70498; 70553; 80053; 80061; 80307; 81001; 83036; 83735; 84100; 84443; 84484; 84703; 85025; 85610; 85652; 85730; 86140; 87086; 92526; 92610; 93225; 93306; 96361; 96374; 96375; 97162; A4649; J0131; J1644; J1885; J2270; J2405; J3475; J7030; Q0164; Q9967; A9270

== ENCOUNTER 2025-02-17 23:22 | Emergency (ER) | payer MEDICAID, SELFPAY ==
[2025-02-17 23:25] VITALS: BP 107/73; PULSE 70; RESP 20; TEMP 36.7; O2SAT 96; BMI 25.0
[2025-02-18] MEDS: MORPHINE SULF INJ 10 MG/ML VIAL 5 MG IM (00:44)
[2025-02-18] MEDS: DEXAMETHASONE SOD PHOS INJ 10 MG/ML VIAL PO (00:46)
[2025-02-18] MEDS: AMOXICILLIN/POT CLAV 875 TABLET 1 TAB PO (00:46)
--- NOTE | 2025-02-18 04:38 | EDNOTE_ITS ---
ED Headache RME/HPI General Chief Complaint: General Adult/Misc Complain Stated Complaint: numbness to L side, headache, chest pain Time Seen by Provider: 02/18/25 00:33 Arrival date/time: 02/17/25 23:22 44F with no significant PMH presents to ED with several days of L-side facial numbness and YANES. Patient was discharged 2 days ago for stroke evaluation. MRI/MRA brain states no infarc but significant sinusitis. Patient was discharged with nasal spray w/o relief. Limitations: no limitations Related Data Previous Rx's ?Medication ?Instructions ?Recorded aspirin 81 mg capsule 81 mg PO QDAY 1 month #30 ca ps 02/14/25 atorvastatin 40 mg tablet 40 mg PO QPM 1 month #30 tab s 02/14/25 azelastine 137 mcg (0.1 %) nasal 1 spray intranasal BI D PRN nasal 02/14/25 spray congestion 1 month #30 mL fluticasone propionate 50 1 spray intranasal BID PRN n jose 02/14/25 mcg/actuation nasal congestion 1 month #16 grams spray,suspension (Flonase Allergy Relief) amoxicillin 875 mg-potassium 1 tab PO BID 7 days #14 t abs 02/18/25 clavulanate 125 mg tablet Allergies Allergy/AdvReac Type Severity Reaction Status Date / Time acetaminophen (From NyQuil) Allergy Severe Hives Verified 02/11/25 17:44 dextromethorphan (From Allergy Severe Hives Verified 02/11/25 17:44 NyQuil) doxylamine (From NyQuil) Allergy Severe Hives Verified 02/11/25 17:44 pseudoephedrine (From Allergy Severe Hives Verified 02/11/25 17:44 DayQuil Sinus Pressure/Pain) blueberry Allergy Verified 02/12/25 00:28 ibuprofen Allergy Verified 02/11/25 17:44 latex AdvReac Intermediate Rash Verified 02/11/25 17:44 BEE STING Allergy Severe Anaphylaxis Uncoded 02/11/25 17:44 Review of Systems Review of Systems Systems Reviewed: All systems reviewed, normal except as documented Constitutional Constitutional: Reports system reviewed and no additional complaints, except as documented, Reports as per HPI, Denies fever(s) and Reports headache(s) ENT Ears, Nose, Mouth, and Throat: Denies disequilibrium and Reports headache(s) Cardiovascular Cardiovascular: Reports system reviewed and no additional complaints, except as documented, Denies chest pain and Denies dyspnea Respiratory Respiratory: Reports system reviewed and no additional complaints, except as documented, Denies cough and Denies dyspnea Gastrointestinal Gastrointestinal: Reports system reviewed and no additional complaints, except as documented, Denies abdominal pain, Denies nausea and Denies vomiting Musculoskeletal Musculoskeletal: Reports numbness Neurologic Neurologic: Reports system reviewed and no additional complaints, except as documented, Reports as per HPI, Denies confusion, Denies disequilibrium, Reports headache(s) and Reports numbness Psychiatric Psychiatric: Denies confusion Past Medical History Past Medical History NEUROLOGIC: Negative Neurological Disorders CARDIAC: Negative Cardiac Disorders or Congestive Heart Failure RESPIRATORY: Negative Chronic Obstructive Pulmonary Disease (COPD) or Asthma GENITOURINARY: Positive Kidney Stones; Negative Renal Disease ENDOCRINE: Negative Diabetes Mellitus Type 1 or Diabetes Mellitus Type 2 HEMATOLOGIC: Negative Sickle Cell Disease Surgical History SURGICAL: Positive Abdominal Surgery Social History SMOKING STATUS: Never smoker SUBSTANCE USE: does not use ED Exam General Limitations: Present no limitations General appearance: Present alert and in no apparent distress Head Head exam: Present atraumatic Eye Eye exam: Present normal appearance, PERRL and EOMI ENT ENT exam: Present mucous membranes moist Expanded ENT Exam Nose exam: Present sinus tenderness Neck Neck exam: Present normal inspection, full ROM and trachea midline Chest Chest inspection: Present normal inspection and symmetric chest wall rise Respiratory Respiratory exam: Present normal lung sounds bilaterally Cardiovascular Cardiovascular exam: Present regular rate, normal rhythm and normal heart sounds Abdominal Exam Abdominal exam: Present soft and normal bowel sounds Extremities Exam Extremities exam: Present normal inspection and full ROM Back Exam Back exam: Present normal inspection and full ROM Neurological Exam Neurological exam: Present alert, oriented X3 and CN II-XII intact Psychiatric Psychiatric exam: Present normal affect and normal mood Skin Skin exam: Present warm, dry, intact and normal color Course Quality Measures none Orders Category Date Time Status Amoxicillin/Pot Clav 875 [Augmentin 875] Med 02/18/25 00:33 Discontinued 1 tab PO X1 ONE Dexamethasone Inj [Decadron Inj] Med 02/18/25 00:35 Discontinued 10 mg PO X1 ONE Morphine Inj Med 02/18/25 00:33 Discontinued 5 mg IM X1 ONE Vital Signs Vital signs: Vital Signs Temperature 98.0 F 02/17/25 23:25 Pulse Rate 70 02/17/25 23:25 Respiratory Rate 20 02/17/25 23:25 Blood Pressure 107/73 02/17/25 23:25 Pulse Oximetry (%) 96 02/17/25 23:25 Oxygen Delivery Method Room Air 02/17/25 23:25 O2 at 96% on RA and WNLs Headache MDM Narrative MDM Narrative:: 44F with no significant PMH presents to ED with several days of L-side facial numbness and YANES. Patient was discharged 2 days ago for stroke evaluation. MRI/MRA brain states no infarc but significant sinusitis. Patient was discharged with nasal spray w/o relief. Physical exam reveals normal pupil response and EOM. CN II-XII grossly intact. Speech normal. Gait normal. Sinus tenderness. Patient is afebrile, alert, but appears to be in pain. Will trial course of steroids and ABX. Patient data External records reviewed:: [facility] previous records Clinical information provided by:: patient Social determinants that could affect healthcare access:: none Patient has the following chronic illnesses:: none How is presenting disease/condition affected by chronic disease/condition?: no chronic disease Evaluation data The following diagnostics were reviewed and interpreted by me:: other (specify) (none) Lab and/or radiology exams considered but not ordered:: not ordered Interpretation Summary: n/a Medications / Prescriptions Medications or Prescriptions considered but not ordered:: ordered Medication administrations:: Medication Administration History Discontinued Medications Amoxicillin/Clavulanate Potassium (Amoxicillin/Pot Clav 875 Tablet) 1 tab PO X1 ONE Stop: 02/18/25 00:34 Last Admin: 02/18/25 00:46 Dose: 1 tab Documented By: KARINA Dexamethasone Sodium Phosphate (Dexamethasone Sod Phos Inj 10 Mg/Ml Vial) 10 mg PO X1 ONE Stop: 02/18/25 00:36 Last Admin: 02/18/25 00:46 Dose: 10 mg Documented By: KARINA Comments: PO Morphine Sulfate (Morphine Sulf Inj 10 Mg/Ml Vial) 5 mg IM X1 ONE Stop: 02/18/25 00:34 Last Admin: 02/18/25 00:44 Dose: 5 mg Documented By: KARINA above Consultations Consultation(s) initiated? (list below): No Diagnosis Differential diagnosis headache: migraine, tension headache, subarachnoid hemorrhage, headache, meningitis, sinusitis and postconcussion syndrome Most likely diagnosis given after review of the tests above:: sinusitis Admission Indicated Admission indicated?: not indicated Admission Request Was there a request for admission?: No Disposition Plan Disposition Plan: Discharge Discharge Attestation Discharge Attestation: The patient and all family members were given an opportunity to ask questions and understood the discharge instructions. Discharge instructions specifically effects, indications for sooner follow up or return to the emergency department, and the expected course of current diagnosis. Patient condition: Stable Discharge Plan Plan Patient Disposition: HOME (Self Care) Discharge Disposition comment: Stable Prescriptions/Referrals Prescriptions/Med Rec: New amoxicillin-pot clavulanate 875-125 mg tablet 1 tab PO BID 7 Days Qty: 14 0RF No Action azelastine 137 mcg (0.1 %) spray,non-aerosol 1 spray intranasal BID PRN (Reason: nasal congestion) 30 Days Qty: 30 0RF Rx Instructions: administer into each nostril fluticasone propionate [Flonase Allergy Relief] 50 mcg/actuation spray,suspension 1 spray intranasal BID PRN (Reason: nasal congestion) 30 Days Qty: 16 0RF Rx Instructions: administer into each nostril twice a day as needed aspirin 81 mg capsule 81 mg PO QDAY 30 Days Qty: 30 0RF Rx Instructions: Take one tablet by mouth every day atorvastatin 40 mg tablet 40 mg PO QPM 30 Days Qty: 30 1RF Rx Instructions: Take one tablet by mouth at night Problem List Clinical Impression: Sinusitis Patient/Caregiver Discharge Instructions Education Materials: Causes of Sinusitis Additional Instructions: Please follow-up with PCP within 24-48 hours and return immediately if symptoms worsen. If problem persists, see ENT. Print Language: Malay Stand Alone Forms: Patient Portal Info Letter SAM/TANNER Supervising Physician SAM/TANNER Supervising Physician: Dr. Salas
== END 2025-02-18 00:50 | disposition home or self-care (01) ==
LOC: SERX 02-18 01:11
PROVIDERS: Emergency Provider Emergency Medicine
DX: J32.9 Chronic sinusitis, unspecified (principal)
CPT/HCPCS: 96372; 99283; J1100; J2270; A9270